=== PATIENT | female | born 1930 | race Caucasian/White ===

== ENCOUNTER 2017-12-28 09:25 | Emergency (ER) | payer MEDICARE, BC ==
--- NOTE | 2017-12-28 09:38 | Emergency Department Record ---
History of Present Illness - General Chief Complaint: Chest Pain Stated Complaint: CHEST PAIN Time Seen by Provider: 12/28/17 09:29 Source: Patient, EMS Mode of Arrival: Stretcher Limitations: No limitations - History of Present Illness Initial Comments: 87 yo female presents by EMS for chest pain. The pain is gone at this time. The pain initially occurred at 6am. The pain was substernal with some radiation to the back. The pain lasted several minutes then would resolve. She had 2-3 simialr episodes prior to calling EMS. The patient denies any recent similar pain. No history of CAD. No history of PE. No abdominal pain. No recent illness. No leg pain or swelling. Her PCP is Dr Gay" in [place]. She took 4 baby aspirin when EMS arrived. MD Complaint: Chest pain -: Hour(s) (6am onset) Pain Location: Substernal Pain Radiation: Back Severity: Moderate Quality: Aching Consistency: Intermittent Improves With: Nothing Worsens With: Movement Other Symptoms: Other Treatments Prior to Arrival: None - Related Data On Oral Contraceptives: No Home Medications Medication Instructions Recorded Confirmed Last Taken Aspirin [Aspir-Low] 81 mg PO DAILY 12/28/17 12/28/17 12/28/17 Insulin Detemir [Levemir Flextouch] 30 units SQ BID 12/28/17 12/28/17 12/28/17 Insulin Lispro [Humalog] 8 unit SQ BID 12/28/17 12/28/17 Unknown Levothyroxine Sodium 75 mcg PO DAILY 12/28/17 12/28/17 Unknown Lisinopril 20 mg PO DAILY 12/28/17 12/28/17 Unknown Metformin HCl 500 mg PO DAILY 12/28/17 12/28/17 Unknown Pravastatin Sodium [Pravachol] 20 mg PO DAILY 12/28/17 12/28/17 Unknown Sitagliptin Phosphate [Januvia] 100 mg PO DAILY 12/28/17 12/28/17 Unknown Allergies Allergy/AdvReac Type Severity Reaction Status Date / Time Penicillins Allergy Severe HIVES Verified 12/28/17 09:37 Review of Systems Constitutional: Denies: Chills, Fever, Malaise, Weakness Eyes: Denies: Eye discharge, Eye pain, Photophobia, Vision change ENT: Denies: Congestion, Epistaxis, Throat pain Respiratory: Denies: Cough, Dyspnea, Hemoptysis, Stridor, Wheezes Cardiovascular: Reports: Chest pain. Denies: Arrhythmia, Dyspnea on exertion, Edema, Palpitations, Syncope Endocrine: Denies: Fatigue, Polydipsia, Polyuria Gastrointestinal: Denies: Abdominal pain, Diarrhea, Nausea, Vomiting Genitourinary: Denies: Dysuria, Urgency Musculoskeletal: Reports: Back pain. Denies: Arthralgia, Myalgia Skin: Denies: Bruising, Change in color, Rash Neurological: Denies: Headache, Numbness, Weakness Psychiatric: Denies: Anxiety Hematological/Lymphatic: Denies: Blood Clots, Easy bleeding, Easy bruising, Swollen glands Physical Exam - General General Appearance: Alert, Oriented x3, Cooperative, No acute distress Limitations: No limitations - Head Head exam: Atraumatic, Normal inspection - Eye Eye exam: Normal appearance, PERRL. negative: Conjunctival injection, Scleral icterus - ENT ENT exam: Normal exam, Mucous membranes moist Ear exam: Normal external inspection Nasal Exam: Normal inspection Mouth exam: Normal external inspection Teeth exam: Normal inspection Throat exam: Normal inspection - Neck Neck exam: Normal inspection, Full ROM. negative: Tenderness - Respiratory Respiratory exam: Normal lung sounds bilaterally. negative: Accessory muscle use, Chest wall tenderness, Decreased breath sounds, Prolonged expiratory, Respiratory distress, Rhonchi, Stridor, Wheezes - Cardiovascular Cardiovascular Exam: Regular rate, Normal rhythm, Normal heart sounds Peripheral Pulses: 2+: Radial (R), Radial (L) - GI/Abdominal GI/Abdominal exam: Soft. negative: Distended, Guarding, Tenderness - Rectal Rectal exam: Deferred - exam: Deferred - Extremities Extremities exam: Normal inspection, Full ROM, Normal capillary refill. negative: Pedal edema, Tenderness - Back Back exam: Reports: Normal inspection, Full ROM. Denies: Muscle spasm, Rash noted, Tenderness - Neurological Neurological exam: Alert, Normal gait, Oriented X3 - Psychiatric Psychiatric exam: Normal affect, Normal mood - Skin Skin exam: Dry, Intact, Normal color, Warm Course - Reevaluation(s) Reevaluation #1: 12/28/17 09:34 EKG NSR rate 87, intervals normal, axis normal, ST Lateral borderline ST depression in leads V% and V6. No old EKG for comparison. EMS EKG reviewed. Rate 112. NS inferior lateral ST changes as well. No ST elevation. 12/28/17 10:13 The labs were reviewed to this point No acute changes in the CBC or CMP The GFR is normal so CTA of the chest was ordered given the chest pain to the back. 12/28/17 10:21 The Troponin is negative 12/28/17 10:35 BP improved to 181/64 12/28/17 11:[address] scan was reviewed No PE, Aneurysm or Dissection. She does have coronary calcifications She had taken 4 baby aspirin today when EMS arrived. 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 12/28/17 11:54 Dr Kim accepts the patient at [facility] for additional work up 12/28/17 11:55 The patient remains pain free still. Medical Decision Making - Lab Data Result diagrams: 12/28/17 09:43 12/28/17 09:43 Disposition Disposition: Transfer Clinical Impression: Chest pain Qualifiers: Chest pain type: unspecified Qualified Code(s): R07.9 - Chest pain, unspecified Disposition: Acute Care Hospital Transfer Transfer To: [facility] Reason For Transfer: Chest Pain Accepting Physician: Julio Time Discussed w/Accepting Physician: 11:49 Condition: (1) Good Forms: Patient Portal Access Time of Disposition: 11:49 Quality - Quality Measures Quality Measures: N/A - Blood Pressure Screening Does Patient Have Any of the Following: No, Active Dx of HTN Blood Pressure Classification: Hypertensive Reading Systolic Measurement: 220 Diastolic Measurement: 98 Screening for High Blood Pressure: Patient Exclusion, Hx of HTN [G9744]
[2017-12-28 09:51] LABS: BASO % 0.4 % (0-6); EOS % 3.2 % (0-6); GRAN % 67.4 % (47-80); HEMATOCRIT 42.8 % (35.0-47.0); HEMOGLOBIN 14.1 gm/dl (11.6-16.0); LYMPH % 17.1 % (16-45); MEAN CELL VOLUME 89.5 fl (81-97); MEAN CORPUSCULAR HEMOGLOBIN 29.5 pg (27-33); MEAN CORPUSCULAR HGB CONC 32.9 g/dl (32-36); MEAN PLATELET VOLUME 11.2 fl (7.4-10.4); MONO % 11.9 % (0-9); PLATELET COUNT 221 K/uL (130-400); RED BLOOD COUNT 4.78 M/uL (3.80-5.40); RED CELL DISTRIBUTION WIDTH 15.3 % (11.5-14.5); WHITE BLOOD COUNT W/O DIFF 7.9 K/uL (4.2-12.2)
[2017-12-28 10:04] LABS: INR 0.96; PARTIAL THROMBOPLASTIN TIME 25.8 SECONDS (24.5-39.1); PROTHROMBIN TIME (PATIENT) 10.4 SECONDS (9.5-12.1)
[2017-12-28 10:05] LABS: BLOOD UREA NITROGEN 16 mg/dL (8-23); CREATININE 0.6 mg/dL (0.5-0.9); EST GLOMERULAR FILTRATION RATE > 60 mL/min
[2017-12-28 10:08] LABS: GLUCOSE,RANDOM 281 mg/dL (74-109)
[2017-12-28 10:10] LABS: ALB/GLOB RATIO 1.4 (1.1-1.8); ALBUMIN 4.1 g/dL (4.0-5.0); ALKALINE PHOSPHATASE 87 U/L (35-104); ALT/SGPT 12 U/L (<33); AST/SGOT 16 U/L (10.0-35.0); CREATINE PHOSPHOKINASE 29 U/L (26-192)
--- NOTE | 2017-12-28 13:01 | CT ANGIOGRAM REPORT ---
EXAM: CTA OF THE CHEST WITH CONTRAST WITH POST PROCESSING HISTORY: ACUTE MID CHEST PAIN POSTERIORLY RADIATING TO THE FRONT ON THE LEFT SINCE THIS MORNING. POSSIBLE PE. TECHNIQUE: CTA of the chest was performed following the intravenous administration of 75 ml of Omnipaque 350 as the IV contrast. Post processing on an independent workstation was performed with multiple 3D MIP series obtained. Comparison: No prior chest CT or chest x-ray with which to compare. FINDINGS: No definite PE identified. No thoracic aortic aneurysm or dissection is seen. No pleural or pericardial effusion evident. Some coronary artery calcification is present. There are some mildly prominent mediastinal nodes with the largest such node in the subcarinal location measuring about 13 mm in maximum short axis. These are nonspecific and may just be reactive. No pleural or pericardial effusion evident. There is a small left adrenal nodule approximately 17.6 mm in size. This has a CT density of only 12 and is likely just an incidental adenoma. Old films would be useful to confirm a stable appearance. No pneumothorax evident. There is a small patch of ground glass infiltrate in the left upper lobe. Mild dependent atelectasis in both lung bases posteriorly. There are a couple air cysts which may be bullae in the right upper lung medially and there are probably some additional tiny scattered bullae in the lungs as well. Clinical correlation as to mild changes of emphysema suggested. Prominent spurring in the thoracic spine at multiple levels. Mild thoracic curve to the right. Prominent degenerative arthritis right shoulder. IMPRESSION: 1. NO DEFINITE PE IDENTIFIED. 2. SMALL PATCH OF GROUND GLASS INFILTRATE LEFT APICAL REGION. 3. SOME BULLAE IN THE LUNGS MAY REPRESENT MILD CHANGES OF EMPHYSEMA. 4. DEGENERATIVE CHANGE IN THE SPINE AND RIGHT SHOULDER. 5. SOME MILDLY PROMINENT MEDIASTINAL NODES ARE NONSPECIFIC ALTHOUGH MAY JUST BE REACTIVE. 6. CORONARY ARTERY CALCIFICATION. 7. 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 OLD SCANS WOULD BE USEFUL TO CONFIRM. JOB NUMBER: [id number] [facility]
== END 2017-12-28 17:52 | disposition short-term general hospital (02) ==
LOC: ER 09:25
DX: R07.9 Chest pain, unspecified (principal); M54.6 Pain in thoracic spine; I10 Essential (primary) hypertension; E11.9 Type 2 diabetes mellitus without complications; Z79.4 Long term (current) use of insulin
CPT/HCPCS: 99285 ×2; 82550; 85025; 85730; 85610; 80053; 84484; 83880; 71275; 93005; 93010; Q9967

== ENCOUNTER 2018-01-26 10:54 | Emergency (ER) | payer MEDICARE, BC ==
[2018-01-26] MEDS ORDERED: HUMULIN R 100 UNIT/ML VIAL SC ONE (10:55)
--- NOTE | 2018-01-26 11:30 | Emergency Department Record ---
History of Present Illness - General Chief complaint: Weakness Stated complaint: WEAKNESS Time Seen by Provider: 01/26/18 10:59 Source: Patient, Family Mode of Arrival: Ambulatory Limitations: No limitations - History of Present Illness Initial comments: 87 yo female presents with weakness since 12 pm yesterday. She was on the toilet and was unable to stand on her own. She remained there until family got her up. She was unable to stand up or walk without two people support. She also noted so could not open her pill bottles today. She was last normal at noon when she went to the bathroom. No speech changes, vision changes, sensory changes. She is unable to lift her leg off the bed and her mate fourth is weak on her dominant right hand. No history of strokes. MD Complaint: Difficulty walking, Focal weakness Onset/Timin -: Days(s) Location: Generalized Severity: Severe Improves with: None Worsens with: None Associated Symptoms: Denies other symptoms - [place] Coma Scale Eye Response: (4) Open spontaneously Motor Response: (6) Obeys commands Verbal Response: (5) Oriented [place] Total: 15 - Symptoms of Stroke Onset of Symptoms Date: 01/25/18 Symptom Onset Unknown: Yes Symptoms of stroke: Muscle Weakness - Related Data Home Medications Medication Instructions Recorded Confirmed Last Taken Carvedilol 6.25 mg PO BID 01/26/18 01/26/18 01/26/18 Allergies Allergy/AdvReac Type Severity Reaction Status Date / Time Penicillins Allergy Severe HIVES Verified 01/26/18 11:03 Travel Screening - Travel/Exposure Within Last 30 Days Have you traveled within the last 30 days?: No Review of Systems Constitutional: Denies: Chills, Fever, Malaise, Weakness Eyes: Denies: Eye discharge ENT: Denies: Congestion, Throat pain Respiratory: Denies: Cough Cardiovascular: Denies: Chest pain, Palpitations, Syncope Endocrine: Denies: Fatigue Gastrointestinal: Denies: Abdominal pain, Diarrhea, Nausea, Vomiting Genitourinary: Denies: Dysuria, Urgency Musculoskeletal: Denies: Arthralgia, Back pain, Joint swelling, Myalgia, Neck pain Skin: Denies: Bruising, Change in color, Rash Neurological: Reports: As per HPI, Abnormal gait, Weakness. Denies: Confusion, Headache, Numbness, Tingling, Tremors, Vertigo Psychiatric: Denies: Anxiety Hematological/Lymphatic: Denies: Blood Clots, Easy bleeding, Easy bruising, Swollen glands Past Medical History - SOCIAL HISTORY Smoking Status: Never smoker Alcohol Use: None Drug Use: None - RESPIRATORY Hx Respiratory Disorders: No - CARDIOVASCULAR Hx Cardio Disorders: Yes Hx Hypertension: Yes Comment:: high cholesterol - NEURO Hx Neuro Disorders: No - GI Hx GI Disorders: No - Hx Genitourinary Disorders: No - ENDOCRINE Hx Endocrine Disorders: Yes Hx Diabetes: Yes Hx Thyroid Disease: Yes - MUSCULOSKELETAL Hx Musculoskeletal Disorders: No - PSYCH Hx Psych Problems: No - HEMATOLOGY/ONCOLOGY Hx Hematology/Oncology Disorders: No Family Medical History Any Significant Family History?: Yes Hx Diabetes: Mother Physical Exam - General General Appearance: Alert, Oriented x3, Cooperative, No acute distress Limitations: No limitations - Head Head exam: Normal inspection - Eye Eye exam: Normal appearance, PERRL, EOMI. negative: Conjunctival injection, Scleral icterus - ENT ENT exam: Normal exam, Mucous membranes moist, Normal orophraynx Ear exam: Normal external inspection Nasal Exam: Normal inspection Mouth exam: Normal external inspection Teeth exam: Normal inspection Throat exam: Normal inspection - Neck Neck exam: Normal inspection, Full ROM. negative: Tenderness - Respiratory Respiratory exam: Normal lung sounds bilaterally. negative: Respiratory distress - Cardiovascular Cardiovascular Exam: Regular rate, Normal rhythm, Normal heart sounds Peripheral Pulses: 2+: Radial (R), Radial (L) - GI/Abdominal GI/Abdominal exam: Soft. negative: Tenderness - Rectal Rectal exam: Deferred - exam: Deferred - Extremities Extremities exam: Normal inspection, Normal capillary refill. negative: Calf tenderness, Full ROM, Joint swelling, Pedal edema, Tenderness - Back Back exam: Reports: Normal inspection, Full ROM. Denies: Muscle spasm, Rash noted, Tenderness - Neurological Neurological exam: Abnormal gait, Alert, CN II-XII intact, Motor sensory deficit , Oriented X3, Reflexes normal, Other (Seo Team Lead on the right is 3-4/5 and 5/5 on the left. She is unable to overcome gravity with the right leg. The leg remains on the bed. she can plantar and dorsiflex the foot with mild decrease vs the left. No PND of the upper extremities. She has no PND on the left lower leg). negative: Altered, Normal gait - Psychiatric Psychiatric exam: Normal affect, Normal mood - Skin Skin exam: Dry, Intact, Normal color, Warm Stroke Assessment - NIH Stroke Scale 1a. Level of Consciousness: (0) Alert 1b. LOC Questions: (0) Answers Correctly 1c. LOC Commands: (0) Performs Tasks Correctly 2. Best Gaze: (0) Normal 3. Visual: (0) No Visual Loss 4. Facial Palsy: (0) Normal Symmetrical Movement 5a. Motor Arm Left: (0) No Drift 5b. Motor Arm Right: (0) No Drift (mate fourth decreased on the right compared to the left) 6a. Motor Leg Left: (0) No Drift 6b. Motor Leg Right: (3) No [place] Effort 7. Limb Ataxia: (0) Absent 8. Sensory: (0) Normal 9. Best Language: (0) No Aphasia 10. Dysarthria: (0) Normal 11. Extinction/Inattention: (0) No Abnormality NIH Stoke Scale Total: 3 Course Vital Signs 01/26/18 10:59 Temperature 98.5 F Pulse Rate 71 Respiratory 18 Rate Blood Pressure 157/70 Pulse Ox 96 - Reevaluation(s) Reevaluation #1: 01/26/18 11:33 DC summary from [facility] was reviewed. Normal Troponins. Stress with small inferior distal apex ischemia with elected medical management. 01/26/18 11:45 EKG 11:37am Rate 70, intervals normal, axis normal, ST normal, LVH. 01/26/18 11:59 The labs were reviewed The glucose in 342 otherwise no changes on the CBC or CMP. 01/26/18 12:16 The HCT was reviewed. chronic age related changes. No intracranial pathology, Left maxillary sinus disease. 01/26/18 12:22 The examination is unchanged with mate fourth weakness, mild biceps weakness and still unable to overcome gravity. One Call at [facility] called for Stroke Team 01/26/18 12:29 I ROSELIA Perkins of Stroke. He accepts the patient for transfer. Medical Decision Making - Lab Data Result diagrams: 01/26/18 11:05 01/26/18 11:05 Disposition Disposition: Transfer Clinical Impression: Stroke Disposition: Acute Care Hospital Transfer Transfer To: [facility] Reason For Transfer: right UE and LE weakness Accepting Physician: Gregorio Time Discussed w/Accepting Physician: 12:24 Condition: (2) Stable Forms: Patient Portal Access Time of Disposition: 12:17 Quality - Quality Measures Quality Measures: N/A - Blood Pressure Screening Does Patient Have Any of the Following: Active Dx of HTN Blood Pressure Classification: Hypertensive Reading Systolic Measurement: 157 Diastolic Measurement: 70 Screening for High Blood Pressure: Patient Exclusion, Hx of HTN [G9744]
[2018-01-26 11:35] LABS: BASO % 0.3 % (0-6); EOS % 0.3 % (0-6); HEMATOCRIT 37.5 % (35.0-47.0); HEMOGLOBIN 12.4 gm/dl (11.6-16.0); LYMPH % 14.9 % (16-45); MEAN CELL VOLUME 89.5 fl (81-97); MEAN CORPUSCULAR HEMOGLOBIN 29.6 pg (27-33); MEAN CORPUSCULAR HGB CONC 33.1 g/dl (32-36); MEAN PLATELET VOLUME 11.7 fl (7.4-10.4); MONO % 12.5 % (0-9); PLATELET COUNT 229 K/uL (130-400); RED BLOOD COUNT 4.19 M/uL (3.80-5.40); RED CELL DISTRIBUTION WIDTH 14.6 % (11.5-14.5)
[2018-01-26 11:43] LABS: BLOOD UREA NITROGEN 17 mg/dL (8-23); CREATININE 0.6 mg/dL (0.5-0.9); EST GLOMERULAR FILTRATION RATE > 60 mL/min
[2018-01-26 11:44] LABS: TOTAL PROTEIN 6.5 g/dL (6.6-8.7)
[2018-01-26 11:46] LABS: GLUCOSE,RANDOM 342 mg/dL (74-109)
[2018-01-26 11:49] LABS: ALB/GLOB RATIO 1.1 (1.1-1.8); ALBUMIN 3.4 g/dL (4.0-5.0); ALKALINE PHOSPHATASE 74 U/L (35-104); ALT/SGPT 8 U/L (<33); AST/SGOT 16 U/L (10.0-35.0)
[2018-01-26 11:50] LABS: PARTIAL THROMBOPLASTIN TIME 32.1 SECONDS (24.5-39.1); PROTHROMBIN TIME (PATIENT) 10.8 SECONDS (9.5-12.1)
[2018-01-26] MEDS ORDERED: HUMULIN R 100 UNIT/ML VIAL SQ ONE (12:17)
[2018-01-26] MEDS ORDERED: ASPIRIN 325 MG TAB ENTERIC-COATED PO ONE (12:28)
[2018-01-26 12:42] LABS: URINE APPEARANCE CLEAR; URINE BILIRUBIN NEGATIVE (NEGATIVE); URINE BLOOD MODERATE (NEGATIVE); URINE COLOR YELLOW; URINE KETONE NEGATIVE (NEGATIVE); URINE LEUKOCYTE ESTERASE NEGATIVE (NEGATIVE); URINE NITRITE NEGATIVE (NEGATIVE); URINE UROBILINOGEN 0.2 E.U./dL (0.20 - 1.00)
[2018-01-26 12:44] LABS: URINE GLUCOSE (UA) >=1000 mg/dL (NEGATIVE)
[2018-01-26 12:52] LABS: URINE BACTERIA 4+
[2018-01-26] MEDS ORDERED: ACETAMINOPHEN 500 MG TABLET PO ONE (14:23)
--- NOTE | 2018-01-27 13:20 | CT SCAN REPORT ---
EXAM: CT OF THE BRAIN WITHOUT CONTRAST HISTORY: RIGHT LEG WEAKNESS. TECHNIQUE: CT of the brain without contrast was obtained. Comparison: None. FINDINGS: The globes are intact. Bubbly air fluid level of the left maxillary sinus with mucosal thickening. No displaced or depressed skull fracture. No intra or extraaxial hemorrhage. CT is limited for the evaluation of acute infarct. No CT evidence for large or territorial acute infarct. Diffuse atrophy. Hypodensities in the periventricular and subcortical white matter consistent with sequelae of small vessel ischemic change. No mass or midline shift. IMPRESSION: LEFT MAXILLARY SINUSITIS. ATROPHY. SMALL VESSEL ISCHEMIC CHANGE. JOB NUMBER: [id number] [facility]
--- NOTE | 2018-01-27 13:23 | RADIOLOGY REPORT ---
EXAM: PELVIS AND RIGHT HIP HISTORY: PAIN. TECHNIQUE: AP view of the pelvis and two views of the right hip were obtained. Comparison: None. Encounter: Initial. FINDINGS: Osteopenia. No convincing evidence for an acute fracture or dislocation. Correlate with any history of inability to ambulate. If warranted further assessment with CT could be performed given the degree of osteopenia. Mild degenerative changes of the hips bilaterally. The soft tissues are unremarkable. IMPRESSION: OSTEOPENIA WITH MILD DEGENERATIVE CHANGE. CORRELATE WITH ANY HISTORY OF INABILITY TO AMBULATE. JOB NUMBER: [id number] [facility]
== END 2018-01-26 14:39 | disposition short-term general hospital (02) ==
LOC: ER 10:54
DX: I63.9 Cerebral infarction, unspecified (principal); G81.91 Hemiplegia, unspecified affecting right dominant side; J32.0 Chronic maxillary sinusitis; R26.2 Difficulty in walking, not elsewhere classified; I10 Essential (primary) hypertension; E11.9 Type 2 diabetes mellitus without complications; Z79.4 Long term (current) use of insulin
CPT/HCPCS: 99285 ×2; 96372; 85025; 85730; 85610; 80053; 81001; 84484; 73502; 70450; 93005; 93010; J1815

== ENCOUNTER 2019-01-01 10:08 | Observation (INO) | payer MEDICARE, BC ==
[2019-01-01] MEDS ORDERED: ASPIRIN 81 MG CHEWABLE TABLET PO ONE (10:35)
[2019-01-01] MEDS ORDERED: NITROGLYCERIN 0.4MG SL TABLET #25 BTL SL ONE (10:35)
[2019-01-01 10:46] LABS: BASO % 0.3 % (0-6); EOS % 3.2 % (0-6); GRAN % 65.3 % (47-80); HEMATOCRIT 39.8 % (35.0-47.0); LYMPH % 17.7 % (16-45); MEAN CELL VOLUME 90.7 fl (81-97); MEAN CORPUSCULAR HEMOGLOBIN 29.6 pg (27-33); MEAN CORPUSCULAR HGB CONC 32.7 g/dl (32-36); MEAN PLATELET VOLUME 11.1 fl (7.4-10.4); MONO % 13.5 % (0-9); PLATELET COUNT 365 K/uL (130-400); RED BLOOD COUNT 4.39 M/uL (3.80-5.40); RED CELL DISTRIBUTION WIDTH 15.2 % (11.5-14.5); WHITE BLOOD COUNT W/O DIFF 7.4 K/uL (4.2-12.2)
--- NOTE | 2019-01-01 10:48 | Emergency Department Record ---
History of Present Illness - General Chief complaint: Extremity Problem Stated complaint: L ARM PAIN Time Seen by Provider: 01/01/19 10:14 Source: Patient Mode of Arrival: Ambulatory Limitations: No limitations - History of Present Illness Initial comments: pt has been getting intermittent cp and l arm pain which has currently resolved. she had no sob, n or sweating. MD Complaint: Extremity pain Onset/Timin -: Days(s) Location: Left, Arm, Shoulder History of Same: Yes Severity scale (1-10): 2 Quality: Aching, Dull Consistency: Constant, Intermittent Improves with: Nothing Worsens with: Nothing Associated Symptoms: Denies other symptoms - Related Data Home Medications Medication Instructions Recorded Confirmed Last Taken Apixaban [Eliquis] 2.5 mg PO BID 01/01/19 01/01/19 1 Day Ago ~12/31/18 Cranberry/B.coagulan/C/Calcium 1 each PO DAILY 01/01/19 01/01/19 1 Day Ago [Cranberry-Probiotic Tablet] ~12/31/18 Ferrous Sulfate [High Potency Iron] 27 mg PO DAILY 01/01/19 01/01/19 1 Day Ago ~12/31/18 Levothyroxine Sodium 88 mcg PO DAILY 01/01/19 01/01/19 1 Day Ago ~12/31/18 Allergies Allergy/AdvReac Type Severity Reaction Status Date / Time Penicillins Allergy Severe HIVES Verified 01/01/19 10:19 Travel Screening - Travel/Exposure Within Last 30 Days Have you traveled within the last 30 days?: No - Travel/Exposure Within Last Year Have you traveled outside the [place] in the last year?: No - Additonal Travel Details Have you been exposed to anyone with a communicable illness?: No - Travel Symptoms Symptom Screening: None Review of Systems Reviewed: No additional complaints except as noted below Constitutional: Reports: As per HPI. Denies: Chills, Fever, Malaise, Night sweats, Weakness, Weight change Eyes: Reports: As per HPI. Denies: Eye discharge, Eye pain, Photophobia, Vision change ENT: Reports: As per HPI. Denies: Congestion, Dental pain, Ear pain, Epistaxis , Hearing loss, Throat pain Respiratory: Reports: As per HPI. Denies: Cough, Dyspnea, Hemoptysis, Stridor, Wheezes Cardiovascular: Reports: As per HPI, Chest pain. Denies: Arrhythmia, Dyspnea on exertion, Edema, Murmurs, Orthopnea, Palpitations, Paroxysmal nocturnal dyspnea, Rheumatic Fever, Syncope Endocrine: Reports: As per HPI. Denies: Fatigue, Heat or cold intolerance, Polydipsia, Polyuria Gastrointestinal: Reports: As per HPI. Denies: Abdominal pain, Constipation, Diarrhea, Hematemesis, Hematochezia, Melena, Nausea, Vomiting Genitourinary: Reports: As per HPI. Denies: Abnormal menses, Discharge, Dyspareunia, Dysuria, Frequency, Hematuria, Incontinence, Retention, Urgency Musculoskeletal: Reports: As per HPI. Denies: Arthralgia, Back pain, Gout, Joint swelling, Myalgia, Neck pain Skin: Reports: As per HPI. Denies: Bruising, Change in color, Change in hair/ nails, Lesions, Pruritus, Rash Neurological: Reports: As per HPI. Denies: Abnormal gait, Confusion, Headache, Numbness, Paresthesias, Seizure, Tingling, Tremors, Vertigo, Weakness Psychiatric: Reports: As per HPI. Denies: Anxiety, Auditory hallucinations, Depression, Homicidal thoughts, Suicidal thoughts, Visual hallucinations Hematological/Lymphatic: Reports: As per HPI. Denies: Anemia, Blood Clots, Easy bleeding, Easy bruising, Swollen glands Past Medical History - SOCIAL HISTORY Smoking Status: Never smoker Alcohol Use: None Drug Use: None - RESPIRATORY Hx Respiratory Disorders: No - CARDIOVASCULAR Hx Cardio Disorders: Yes Hx Hypertension: Yes Hx Irregular Heartbeat: Yes (A-Fib) Comment:: high cholesterol - NEURO Hx Neuro Disorders: No - GI Hx GI Disorders: No - Hx Genitourinary Disorders: No - ENDOCRINE Hx Endocrine Disorders: Yes Hx Diabetes: Yes Hx Thyroid Disease: Yes - MUSCULOSKELETAL Hx Musculoskeletal Disorders: No - PSYCH Hx Psych Problems: No - HEMATOLOGY/ONCOLOGY Hx Hematology/Oncology Disorders: No Family Medical History Any Significant Family History?: Yes Hx Diabetes: Mother Physical Exam - General General Appearance: Alert, Oriented x3, Cooperative, Mild distress - Head Head exam: Normal inspection - Eye Eye exam: Normal appearance, PERRL, EOMI Pupils: Normal accommodation - ENT ENT exam: Normal exam, Mucous membranes moist, Normal external ear exam, Normal orophraynx Ear exam: Normal external inspection. negative: External canal tenderness Nasal Exam: Normal inspection. negative: Discharge, Sinus tenderness Mouth exam: Normal external inspection, Tongue normal Teeth exam: Normal inspection. negative: Dental caries Throat exam: Normal inspection. negative: Tonsillar erythema, Tonsillar exudate - Neck Neck exam: Normal inspection, Full ROM. negative: Tenderness - Respiratory Respiratory exam: Normal lung sounds bilaterally. negative: Respiratory distress - Cardiovascular Cardiovascular Exam: Regular rate, Normal rhythm, Normal heart sounds - GI/Abdominal GI/Abdominal exam: Soft, Normal bowel sounds. negative: Tenderness - Rectal Rectal exam: Deferred - exam: Deferred - Extremities Extremities exam: Normal inspection, Full ROM, Normal capillary refill. negative: Tenderness - Back Back exam: Reports: Normal inspection, Full ROM. Denies: Muscle spasm, Rash noted, Tenderness - Neurological Neurological exam: Alert, CN II-XII intact, Normal gait, Oriented X3 - Psychiatric Psychiatric exam: Normal affect, Normal mood - Skin Skin exam: Dry, Intact, Normal color, Warm Course Vital Signs 01/01/19 10:27 Pulse Rate [ 78 Internet Developer ] Respiratory 18 Rate Blood Pressure 216/87 [Left Arm] Pulse Ox 98 - Reevaluation(s) Reevaluation #1: 01/01/19 14:29 pt remains pain free. bp is better Reevaluation #2: 01/01/19 14:29 ct is neg for pe but has mediastinal lymph nodes as in previous ct. rad is recommending pet scan if conceern Medical Decision Making - Lab Data Result diagrams: 01/01/19 10:35 01/01/19 10:35 Disposition Disposition: Admit Clinical Impression: Mediastinal lymphadenopathy Chest pain Qualifiers: Chest pain type: unspecified Qualified Code(s): R07.9 - Chest pain, unspecified Hypertension Qualifiers: Hypertension type: essential hypertension Qualified Code(s): I10 - Essential ( primary) hypertension Disposition: Still a Patient at [facility] Decision to Admit: Admit from ER Decision to Admit Date: 01/01/19 Decision to Admit Time: 14:32 Condition: (1) Good Forms: Patient Portal Access Quality - Quality Measures Quality Measures: N/A - Blood Pressure Screening Does Patient Have Any of the Following: Active Dx of HTN Blood Pressure Classification: Hypertensive Reading Systolic Measurement: 154 Diastolic Measurement: 64 Screening for High Blood Pressure: Patient Exclusion, Hx of HTN [G9744]
[2019-01-01] MEDS ORDERED: LISINOPRIL 20 MG TABLET PO ONE (11:15)
[2019-01-01 11:25] LABS: BLOOD UREA NITROGEN 14 mg/dL (8-23); CREATININE 0.6 mg/dL (0.5-0.9); EST GLOMERULAR FILTRATION RATE > 60 mL/min
[2019-01-01 11:26] LABS: TOTAL PROTEIN 7.6 g/dL (6.6-8.7)
[2019-01-01 11:28] LABS: GLUCOSE,RANDOM 349 mg/dL (74-109)
[2019-01-01 11:30] LABS: ALB/GLOB RATIO 1.1 (1.1-1.8); ALBUMIN 3.9 g/dL (4.0-5.0); ALKALINE PHOSPHATASE 111 U/L (45-87); ALT/SGPT 6 U/L (<33); AST/SGOT 10 U/L (10.0-35.0); CREATINE PHOSPHOKINASE 26 U/L (26-192)
[2019-01-01 11:33] LABS: CKMB < 1.0 ng/mL (<3.77)
[2019-01-01] MEDS ORDERED: ACETAMINOPHEN 500 MG TABLET PO PRN (15:20)
[2019-01-01] MEDS ORDERED: NOVOLOG FLEXPEN (INSULIN ASPART) 100 UNITS/ML SQ SCH (16:00)
[2019-01-01] MEDS ORDERED: ONDANSETRON HCL IV 4 MG/2 ML VIAL IVP PRN (16:40)
[2019-01-01] MEDS: JANUVIA 100 MG MC SCH (18:24)
[2019-01-01] MEDS: METFORMIN 500 MG TABLET PO SCH ×2 (18:24→22:04)
[2019-01-01] MEDS: APIXABAN 2.5MG TABLET PO SCH ×2 (18:24→22:04)
[2019-01-01] MEDS: CARVEDILOL 3.125 MG TABLET PO SCH ×2 (18:24→22:04)
[2019-01-01 19:36] LABS: CKMB < 1.0 ng/mL (<3.77)
[2019-01-01] MEDS: SIMVASTATIN 10MG TABLET PO SCH ×2 (20:08→22:05)
[2019-01-01] MEDS: LEVEMIR FLEXTOUCH 100 UNIT/ML INSULIN PEN SQ SCH ×2 (20:08→22:04)
--- NOTE | 2019-01-01 20:54 | History & Physical ---
History of Present Illness - Date of Service Date of Service for History & Physical: 01/02/19 - History of Present Illness Admitting Diagnosis: chest pain, hypertension History of Present Illness: Charmaine Hewitt is an 88 y.o. F who was brought to the [facility] ED by her daughter on the morning of 01/01/19 d/t left arm pain with some chest discomfort that went across the chest to the right shoulder. Woke up around 6am and noticed the left arm pain. States that she sat up in her recliner for awhile and then mentioned it to her daughter later in the morning, who thought she should be seen in the ED. Has not had any chest discomfort recently. On arrival to the ED her BP was 216/87. Was given Lisinopril, Nitro x 1 and an ASA 325mg. BP improved. Denies having any actual chest pain, shortness of breath, palpitations, nausea, abdominal pain, lower extremity swelling or numbness and tingling in her left arm. Does state that the left arm pain that travels across chest to right shoulder has been going on for a few weeks. Reports having difficulty moving her left arm to certain positions lately, "like a frozen shoulder". Denies having any difficulty with heartburn over the last several years, states that she used to take Prilosec daily but hasn't for "years". Had a similar episode almost exactly one year ago and was transferred to [facility]. Pt and her son report that she was found to have a UTI while at [facility]. She reports that she has been in and out of [facility] and sub acute rehab over the last year. Came home in April 2018 from Rehab. Had a cardiac workup, which son believes included an ECHO and a chemical stress test. He and pt both don't remember being told that there was anything significant other than that she goes in and out of Afib, which she reports she cannot feel. Was placed on Eliquis for Afib and follows with Dr. Arnold at [facility], whom she is due to see in January 2019. Reports that her BP is usually 130/80s. For PCP needs, pt follows with [facility]. States that the only recent medication change was an increase in her Thyroid medication. Son reports that his sister was helping pt set up her medications but he found out today that his sister hasn't been double checking the medications after pt has set them up for the week. Son believes that she missed some of her medications this week however pt denies this. PMHx: Afib, HTN, high cholesterol, hypothyroidism, DM II, hx of UTIs PCP: [facility] [place]: Dr. Arnold @ [facility] ED Course: VS: BP 216/87, HR 78, RR 18, SPO2 98% on RA Chest CT: Preliminary report is negative for PE, mediastinal lymph node enlargement similar to previous CT (from 12/28/17) and recommendation for PET scan EKG: No acute changes from previous EKG from 12/28/17. NSR, QTc 425. D-dimer 1.38, CK-MB <1, Troponins <0.010, pro-BNP 310 01/01/19 1900: Resting in bed with son and [id number] at bedside. Denies having any pain at this time. States that she can't lift her left arm up well but "that has been going on for a few weeks". Reports that she does not want to go to [facility], if that ends up being recommended. States "I would rather be at home but if I have to be in a hospital, I want to be here." Discussed testing done in ED. Pt and family state that they are unaware of mediastinal lymphadenopathy that was seen on CT a year ago, as well as on today's CT. Pt reports that she hasn't been eating much lately but does force herself to drink a Glucerna. Doesn 't have much appetite anymore. Denies weakness, confusion, difficulty breathing , fever, chills or abdominal pain. Reports that bowels are working and she usually has loose stool. No urinary complaints. Travel Screening - Travel/Exposure Within Last 30 Days Have you traveled within the last 30 days?: No - Travel/Exposure Within Last Year Have you traveled outside the [place] in the last year?: No - Additonal Travel Details Have you been exposed to anyone with a communicable illness?: No - Travel Symptoms Symptom Screening: None Review of Systems Constitutional: Reports: As per HPI. Denies: Chills, Fever, Malaise, Night sweats, Weakness, Weight change Eyes: Reports: As per HPI. Denies: Eye discharge, Eye pain, Photophobia, Vision change ENT: Reports: As per HPI. Denies: Congestion, Dental pain, Ear pain, Epistaxis , Hearing loss, Throat pain Respiratory: Reports: As per HPI. Denies: Cough, Dyspnea, Hemoptysis, Stridor, Wheezes Cardiovascular: Reports: As per HPI. Denies: Arrhythmia, Chest pain, Dyspnea on exertion, Edema, Murmurs, Orthopnea, Palpitations, Paroxysmal nocturnal dyspnea, Rheumatic Fever, Syncope Endocrine: Reports: As per HPI. Denies: Fatigue, Heat or cold intolerance, Polydipsia, Polyuria Gastrointestinal: Reports: As per HPI. Denies: Abdominal pain, Constipation, Diarrhea, Hematemesis, Hematochezia, Melena, Nausea, Vomiting Genitourinary: Reports: As per HPI. Denies: Abnormal menses, Discharge, Dyspareunia, Dysuria, Frequency, Hematuria, Incontinence, Retention, Urgency Musculoskeletal: Reports: As per HPI, Arthralgia (left shoulder and upper arm pain, occasional right shoulder pain). Denies: Back pain, Gout, Joint swelling , Myalgia, Neck pain Skin: Reports: As per HPI. Denies: Bruising, Change in color, Change in hair/ nails, Lesions, Pruritus, Rash Neurological: Reports: As per HPI. Denies: Abnormal gait, Confusion, Headache, Numbness, Paresthesias, Seizure, Tingling, Tremors, Vertigo, Weakness Psychiatric: Reports: As per HPI. Denies: Anxiety, Auditory hallucinations, Depression, Homicidal thoughts, Suicidal thoughts, Visual hallucinations Hematological/Lymphatic: Reports: As per HPI. Denies: Anemia, Blood Clots, Easy bleeding, Easy bruising, Swollen glands Past Medical History - SOCIAL HISTORY Smoking Status: Never smoker Alcohol Use: None Drug Use: None - RESPIRATORY Hx Respiratory Disorders: No - CARDIOVASCULAR Hx Cardio Disorders: Yes Hx Hypertension: Yes Hx Irregular Heartbeat: Yes (A-Fib) Comment:: high cholesterol - NEURO Hx Neuro Disorders: No - GI Hx GI Disorders: No - Hx Genitourinary Disorders: No - ENDOCRINE Hx Endocrine Disorders: Yes Hx Diabetes: Yes Hx Thyroid Disease: Yes - MUSCULOSKELETAL Hx Musculoskeletal Disorders: No - PSYCH Hx Psych Problems: No - HEMATOLOGY/ONCOLOGY Hx Hematology/Oncology Disorders: No Family Medical History Any Significant Family History?: Yes Hx Diabetes: Mother H&P Meds/Allergies - Allergies Allergies: Allergies Allergy/AdvReac Type Severity Reaction Status Date / Time Penicillins Allergy Severe HIVES Verified 01/01/19 10:19 - Home Medications Home Medications Medication Instructions Recorded Confirmed Last Taken Apixaban [Eliquis] 2.5 mg PO BID 01/01/19 01/01/19 1 Day Ago ~12/31/18 Cranberry/B.coagulan/C/Calcium 1 each PO DAILY 01/01/19 01/01/19 1 Day Ago [Cranberry-Probiotic Tablet] ~12/31/18 Ferrous Sulfate [High Potency Iron] 27 mg PO DAILY 01/01/19 01/01/19 1 Day Ago ~12/31/18 Levothyroxine Sodium 88 mcg PO DAILY 01/01/19 01/01/19 1 Day Ago ~12/31/18 - Active Medications Active Medications: Current Medications Acetaminophen (Tylenol 500mg Tab) 1,000 mg PO Q6H PRN PRN Reason: PAIN - MILD(1-4)/FEVER Apixaban (Eliquis) 2.5 mg PO BID [facility] Last Admin: 01/01/19 18:24 Dose: 2.5 mg Aspirin (Ecotrin (Ec)) 81 mg PO DAILY [facility] Carvedilol (Coreg) 6.25 mg PO BID [facility] Last Admin: 01/01/19 18:24 Dose: 6.25 mg Ferrous Sulfate (Iron) 325 mg PO DAILY [facility] Insulin Aspart (Novolog Flexpen) 1 unit SQ ASDIR [facility] Insulin Detemir (Levemir Flextouch) 18 unit SQ BID [facility] Last Admin: 01/01/19 20:08 Dose: 18 unit Levothyroxine Sodium (Synthroid) 88 mcg PO DAILY [facility] Lisinopril (Zestril) 20 mg PO DAILY [facility] Metformin HCl (Glucophage Ir) 500 mg PO BID [facility] Last Admin: 01/01/19 18:24 Dose: 500 mg Ondansetron HCl (Zofran) 4 mg IVP Q6H PRN PRN Reason: NAUSEA Patient Own Med: Januvia 100mg ( Sitagliptin) 1 each MC DAILY [facility] Last Admin: 01/01/19 18:24 Dose: 1 each Simvastatin (Zocor) 10 mg PO QHS [facility] Last Admin: 01/01/19 20:08 Dose: 10 mg Physical Exam - Vital Signs Vital Signs: Vital Signs - Last 24 Hrs Temp Pulse Pulse Resp BP Pulse Ox 01/01/19 20:09 97.7 F 70 18 164/64 96 01/01/19 17:23 74 70 16 01/01/19 17:15 97.9 F 70 16 142/62 96 01/01/19 15:05 97.7 F 18 160/65 97 01/01/19 13:13 74 17 154/64 97 01/01/19 12:15 68 18 140/94 98 01/01/19 11:31 71 18 200/67 98 01/01/19 11:13 72 18 196/95 01/01/19 10:53 75 18 223/87 98 01/01/19 10:27 78 18 216/87 98 - General General Appearance: Alert, Oriented x3, Cooperative, No acute distress Limitations: No limitations - Head Head exam: Normal inspection - Eye Eye exam: Normal appearance, PERRL, EOMI. negative: Nystagmus Pupils: Normal accommodation - ENT ENT exam: Normal exam, Mucous membranes moist, Normal external ear exam Ear exam: Normal external inspection. negative: External canal tenderness Nasal Exam: Normal inspection. negative: Discharge, Sinus tenderness Mouth exam: Normal external inspection, Tongue normal Teeth exam: Normal inspection. negative: Dental caries Throat exam: Normal inspection. negative: Tonsillar erythema, Tonsillar exudate - Neck Neck exam: Normal inspection, Full ROM. negative: Tenderness - Respiratory Respiratory exam: Normal lung sounds bilaterally. negative: Accessory muscle use, Chest wall tenderness, Respiratory distress - Cardiovascular Cardiovascular Exam: Regular rate, Normal rhythm, Normal heart sounds Peripheral Pulses: 3+: Radial (R), Radial (L), Dorsalis Pedis (R), Dorsalis Pedis (L) - GI/Abdominal GI/Abdominal exam: Soft, Normal bowel sounds. negative: Tenderness - Rectal Rectal exam: Deferred - exam: Deferred - Extremities Extremities exam: Normal inspection, Normal capillary refill. negative: Full ROM (Decreased ROM to left shoulder joint), Pedal edema, Tenderness - Back Back exam: Reports: Normal inspection, Full ROM. Denies: Muscle spasm, Rash noted, Tenderness - Neurological Neurological exam: Alert, CN II-XII intact, Normal gait, Oriented X3. negative : Altered - Psychiatric Psychiatric exam: Normal affect, Normal mood - Skin Skin exam: Dry, Intact, Normal color, Warm. negative: Cyanosis, Diaphoretic, Erythema, Mottled, Pallor, Petechiae, Rash Results - Labs Result Diagrams: 01/01/19 10:35 01/01/19 10:35 Labs Last 24 Hours: Laboratory Results - last 24 hr 01/01/19 01/01/19 01/01/19 10:35 10:35 10:35 WBC 7.4 RBC 4.39 Hgb 13.0 Hct 39.8 MCV 90.7 MCH 29.6 MCHC 32.7 RDW 15.2 H Plt Count 365 MPV 11.1 H Gran % 65.3 Lymphocytes % 17.7 Monocytes % 13.5 H Eosinophils % 3.2 Basophils % 0.3 D-Dimer 1.38 H Sodium 136 Potassium 4.3 Chloride 96 L Carbon Dioxide 23.0 Anion Gap 17.0 H BUN 14 Creatinine 0.6 Estimated GFR > 60 POC Glucose Random Glucose 349 H Calcium 10.9 H Total Bilirubin 0.50 AST 10 ALT 6 Alkaline Phosphatase 111 H Creatine Kinase 26 CK-MB (CK-2) < 1.0 Troponin T < 0.010 NT-Pro-B Natriuret Pep 310.80 Total Protein 7.6 Albumin 3.9 L Globulin 3.7 Albumin/Globulin Ratio 1.1 01/01/19 01/01/19 01/01/19 17:00 19:00 19:15 WBC RBC Hgb Hct MCV MCH MCHC RDW Plt Count MPV Gran % Lymphocytes % Monocytes % Eosinophils % Basophils % D-Dimer Sodium Potassium Chloride Carbon Dioxide Anion Gap BUN Creatinine Estimated GFR POC Glucose 287 H Random Glucose Calcium Total Bilirubin AST ALT Alkaline Phosphatase Creatine Kinase CK-MB (CK-2) Cancelled < 1.0 Troponin T < 0.010 NT-Pro-B Natriuret Pep Total Protein Albumin Globulin Albumin/Globulin Ratio VTE H&P Assessment - Risk for VTE Risk for VTE: Yes Risk Level: High Risk Assessment Date: 01/01/19 Risk Assessment Time: 19:00 VTE Orders Placed or Will Be Placed: Yes Plan - Detailed Diagnosis and Plan (1) Chest pain Current Visit: Yes Status: Acute Qualifiers: Chest pain type: unspecified Qualified Code(s): R07.9 - Chest pain, unspecified Base Code: R07.9 - CHEST PAIN, UNSPECIFIED Comment: 01/01/19: -EKG NSR, unchanged from previous EKG -Trops < 0.010 x3, CK-MB < 1 x3 -Nitro x 1 in ED, no further Nitro administered -Hx of Cardiac Workup in January 2018, no testing results available. Pt and family do not recall anything real abnormal -D-dimer elevated, pt is anticoagulated on Eliquis for Afib. 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, dystrophic calcificiation in rotator cuff -Tylenol PRN ordered (3) Hypertension Current Visit: Yes Status: Acute Qualifiers: Hypertension type: essential hypertension Qualified Code(s): I10 - Essential (primary) hypertension Base Code: I10 - ESSENTIAL (PRIMARY) HYPERTENSION Comment: 01/01/19: -BP averaging in 160/60s, pt reports is usually 130s/80s -Continue home dose of Carvedilol 6.25mg PO BID -Continue home dose of Lisinopril 20mg daily -Creat 0.60, GFR >60 -Will add Norvasc 2.5mg daily at this time -Recommend f/u with PCP for further BP management (4) Mediastinal lymphadenopathy Current Visit: Yes Status: Acute Base Code: R59.0 - LOCALIZED ENLARGED LYMPH NODES Comment: 01/01/19: -CT of chest from 12/2017: mildly prominent mediastinal nodes, largest @ subcarina at 13mm, ground glass infiltrate in Left upper lobe -Preliminary read from current Chest CT still shows mediastinal lymph node prominence and recommends PET scan for further workup. 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 (6) Urinary tract infection Current Visit: Yes Status: Acute Base Code: N39.0 - URINARY TRACT INFECTION , SITE NOT SPECIFIED Comment: 01/02/19: -Hx of recurrent UTI -U/A = +Nitrites, + Leuks and +blood, C&S pending -Macrobid 100mg PO BID x 14 days (7) DVT prophylaxis Current Visit: Yes Status: Acute Base Code: [id number] - Comment: 01/01/19: -High Risk d/t age, Afib dx -D-dimer elevated at 1.38, chest CTA negative for PE -Continue home dose of Eliquis 2.5mg PO BID -Nursing to encourage ambulation (8) Full code status Current Visit: Yes Status: Acute Base Code: Z78.9 - OTHER SPECIFIED HEALTH STATUS Comment: 01/01/19: -Full code this admission
[2019-01-02 03:18] LABS: CKMB < 1.0 ng/mL (<3.77)
[2019-01-02 09:57] LABS: URINE APPEARANCE CLEAR; URINE BILIRUBIN NEGATIVE (NEGATIVE); URINE BLOOD SMALL (NEGATIVE); URINE COLOR YELLOW; URINE GLUCOSE (UA) NEGATIVE (NEGATIVE); URINE KETONE NEGATIVE (NEGATIVE); URINE LEUKOCYTE ESTERASE LARGE (NEGATIVE); URINE NITRITE POSITIVE (NEGATIVE); URINE PROTEIN NEGATIVE (NEGATIVE); URINE UROBILINOGEN 0.2 E.U./dL (0.20 - 1.00)
[2019-01-02] MEDS ORDERED: LEVOTHYROXINE SODIUM 88 MCG TABLET PO SCH (10:00)
[2019-01-02] MEDS ORDERED: ASPIRIN 81 MG TABEC PO SCH (10:00)
[2019-01-02] MEDS ORDERED: FERROUS SULFATE 325 MG TAB PO SCH (10:00)
[2019-01-02] MEDS ORDERED: LISINOPRIL 20 MG TABLET PO SCH (10:00)
[2019-01-02 10:14] LABS: URINE BACTERIA 4+; URINE WBC >50 (0-2/hpf)
[2019-01-02] MEDS ORDERED: NITROFURANTOIN MONO 100 MG CAPSULE PO SCH (10:30)
[2019-01-02] MEDS: CARVEDILOL 3.125 MG TABLET PO SCH (10:35)
[2019-01-02] MEDS: APIXABAN 2.5MG TABLET PO SCH (10:36)
[2019-01-02] MEDS: METFORMIN 500 MG TABLET PO SCH (10:36)
[2019-01-02] MEDS: LEVEMIR FLEXTOUCH 100 UNIT/ML INSULIN PEN SQ SCH (10:37)
[2019-01-02] MEDS: JANUVIA 100 MG MC SCH (10:38)
[2019-01-02] MEDS ORDERED: NOVOLOG FLEXPEN (INSULIN ASPART) 100 UNITS/ML SQ SCH (11:04)
[2019-01-02] MEDS ORDERED: AMLODIPINE BESYLATE 5MG TAB PO SCH (11:30)
--- NOTE | 2019-01-02 13:00 | Discharge Summary ---
Providers Discharge Summary Date: 01/02/19 Date of admission: 01/01/19 14:57 Attending physician: NAOMI COSTA Primary care physician: NICOLAS LAMAR Physical Exam - Vital Signs Vital Signs: Vital Signs - Last 24 Hrs Temp Pulse Pulse Pulse Resp BP Pulse Ox 01/02/19 10:15 98.3 F 78 18 186/72 97 01/02/19 09:00 67 74 18 01/02/19 05:00 97.7 F 67 18 159/63 95 01/02/19 01:00 97.8 F 74 20 163/65 95 01/01/19 20:09 97.7 F 70 18 164/64 96 01/01/19 17:23 74 70 16 01/01/19 17:15 97.9 F 70 16 142/62 96 01/01/19 15:05 97.7 F 18 160/65 97 01/01/19 13:13 74 17 154/64 97 - General General Appearance: Alert, Oriented x3, Cooperative, No acute distress Limitations: No limitations - Head Head exam: Normal inspection - Eye Eye exam: Normal appearance, PERRL, EOMI. negative: Nystagmus Pupils: Normal accommodation - ENT ENT exam: Normal exam, Mucous membranes moist, Normal external ear exam Ear exam: Normal external inspection. negative: External canal tenderness Nasal Exam: Normal inspection. negative: Discharge, Sinus tenderness Mouth exam: Normal external inspection, Tongue normal Teeth exam: Normal inspection. negative: Dental caries Throat exam: Normal inspection. negative: Tonsillar erythema, Tonsillar exudate - Neck Neck exam: Normal inspection, Full ROM. negative: Tenderness - Respiratory Respiratory exam: Normal lung sounds bilaterally. negative: Accessory muscle use, Chest wall tenderness, Respiratory distress - Cardiovascular Cardiovascular Exam: Regular rate, Normal rhythm, Normal heart sounds Peripheral Pulses: 3+: Radial (R), Radial (L), Dorsalis Pedis (R), Dorsalis Pedis (L) - GI/Abdominal GI/Abdominal exam: Soft, Normal bowel sounds. negative: Tenderness - Rectal Rectal exam: Deferred - exam: Deferred - Extremities Extremities exam: Normal inspection, Normal capillary refill. negative: Full ROM (Decreased ROM to left shoulder joint), Pedal edema, Tenderness - Back Back exam: Reports: Normal inspection, Full ROM. Denies: Muscle spasm, Rash noted, Tenderness - Neurological Neurological exam: Alert, CN II-XII intact, Normal gait, Oriented X3. negative : Altered - Psychiatric Psychiatric exam: Normal affect, Normal mood - Skin Skin exam: Dry, Intact, Normal color, Warm. negative: Cyanosis, Diaphoretic, Erythema, Mottled, Pallor, Petechiae, Rash Hospitalization - Hospitalization Admission Diagnosis: chest pain, hypertension - Problem List/Discharge Diagnosis (1) Chest pain Status: Acute Discharge Diagnosis: Chest pain type: unspecified Qualified Code(s): R07.9 - Chest pain, unspecified Base Code: R07.9 - CHEST PAIN, UNSPECIFIED Comment: 01/02/19: -No c/o chest pain since ED arrival -EKG NSR, unchanged from previous EKG -Trops < 0.010 x4 CK-MB < 1 x4 -Nitro x 1 in ED, no further Nitro administered -Hx of Cardiac Workup in January 2018, no testing results available. Pt and family do not recall anything real abnormal -D-dimer elevated, pt is anticoagulated on Eliquis for Afib. 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, dystrophic calcificiation in rotator cuff -Tylenol PRN ordered (3) Hypertension Status: Acute Discharge Diagnosis: Hypertension type: essential hypertension Qualified Code(s): I10 - Essential (primary) hypertension Base Code: I10 - ESSENTIAL (PRIMARY) HYPERTENSION Comment: 01/02/19: -BP 139/56 after Lisinopril, Coreg and Norvasc administration -Continue home dose of Carvedilol 6.25mg PO BID -Continue home dose of Lisinopril 20mg daily -Continue Norvasc 2.5mg PO daily -Recommend f/u with PCP for BP management (4) Mediastinal lymphadenopathy Status: Acute Base Code: R59.0 - LOCALIZED ENLARGED LYMPH NODES Comment: 09/10: -CT of chest from 12/2017: mildly prominent mediastinal nodes, largest @ subcarina at 13mm, ground glass infiltrate in Left upper lobe -Preliminary read from current Chest CT still shows mediastinal lymph node prominence and recommends PET scan for further workup. -Discussed findings with pt and son, recommend f/u with PCP about this finding (5) Diabetes mellitus, type II Status: Acute Discharge Diagnosis: Diabetes mellitus longterm insulin use: with longterm use Base Code: E11.9 - TYPE 2 DIABETES MELLITUS WITHOUT COMPLICATIONS Comment: 09/10: -Blood glucose on arrival to ED= 349 -Blood glucose this a.m.= 217 -Increase Levemir to 20 units BID -Will continue home Novolog scale with meals of 2 units for every 20 over blood glucose of 200 -Continue home dose of Metformin 500mg PO BID -Recommend monitoring Blood Glucose levels before meals and at bedtime and logging and then bringing log to PCP at f/u. (6) Urinary tract infection Status: Acute Base Code: N39.0 - URINARY TRACT INFECTION, SITE NOT SPECIFIED Comment: 01/02/19: -Hx of recurrent UTI -U/A = +Nitrites, + Leuks and +blood, C&S pending -Macrobid 100mg PO BID x 14 days -F/u with PCP in 1-2 weeks (7) DVT prophylaxis Status: Acute Base Code: [id number] - Comment: 01/01/19: -High Risk d/t age, Afib dx -D-dimer elevated at 1.38, chest CTA negative for PE -Continue home dose of Eliquis 2.5mg PO BID -Nursing to encourage ambulation (8) Full code status Status: Acute Base Code: Z78.9 - OTHER SPECIFIED HEALTH STATUS Comment: : -Full code this admission - Hospitalization Course Disposition: Home, Self-Care Hospital Course: Charmaine Hewitt is an 88 y.o. F who was brought to the [facility] ED by her daughter on the morning of 01/01/19 d/t left arm pain with some chest discomfort that went across the chest to the right shoulder. Woke up around 6am and noticed the left arm pain. States that she sat up in her recliner for awhile and then mentioned it to her daughter later in the morning, who thought she should be seen in the ED. Has not had any chest discomfort recently. On arrival to the ED her BP was 216/87. Was given Lisinopril, Nitro x 1 and an ASA 325mg. BP improved. Denies having any actual chest pain, shortness of breath, palpitations, nausea, abdominal pain, lower extremity swelling or numbness and tingling in her left arm. Does state that the left arm pain that travels across chest to right shoulder has been going on for a few weeks. Reports having difficulty moving her left arm to certain positions lately, "like a frozen shoulder". Denies having any difficulty with heartburn over the last several years, states that she used to take Prilosec daily but hasn't for "years". Had a similar episode almost exactly one year ago and was transferred to [facility]. Pt and her son report that she was found to have a UTI while at [facility]. She reports that she has been in and out of [facility] and sub acute rehab over the last year. Came home in April 2018 from Rehab. Had a cardiac workup, which son believes included an ECHO and a chemical stress test. He and pt both don't remember being told that there was anything significant other than that she goes in and out of Afib, which she reports she cannot feel. Was placed on Eliquis for Afib and follows with Dr. Arnold at [facility], whom she is due to see in January 2019. Reports that her BP is usually 130/80s. For PCP needs, pt follows with [facility]. States that the only recent medication change was an increase in her Thyroid medication. Son reports that his sister was helping pt set up her medications but he found out today that his sister hasn't been double checking the medications after pt has set them up for the week. Son believes that she missed some of her medications this week however pt denies this. PMHx: Afib, HTN, high cholesterol, hypothyroidism, DM II, hx of UTIs PCP: [facility] Construction Inspector: Dr. Arnold @ [facility] ED Course: VS: BP 216/87, HR 78, RR 18, SPO2 98% on RA Chest CT: Preliminary report is negative for PE, mediastinal lymph node enlargement similar to previous CT (from 12/28/17) and recommendation for PET scan EKG: No acute changes from previous EKG from 12/28/17. NSR, QTc 425. D-dimer 1.38, CK-MB <1, Troponins <0.010, pro-BNP 310 01/01/19 1900: Resting in bed with son and [id number] at bedside. Denies having any pain at this time. States that she can't lift her left arm up well but "that has been going on for a few weeks". Reports that she does not want to go to [facility], if that ends up being recommended. States "I would rather be at home but if I have to be in a hospital, I want to be here." Discussed testing done in ED. Pt and family state that they are unaware of mediastinal lymphadenopathy that was seen on CT a year ago, as well as on today's CT. Pt reports that she hasn't been eating much lately but does force herself to drink a Glucerna. Doesn 't have much appetite anymore. Denies weakness, confusion, difficulty breathing , fever, chills or abdominal pain. Reports that bowels are working and she usually has loose stool. No urinary complaints. 01/02/19 1300: Nursing reports that pt denies having any chest pain, SOB or left arm pain. BP decreased after medication administration. U/A collected and pt found to have + leuks, +nitrites and blood. C&S pending. Pt denies urinary symptoms. Procedures: Imaging and X-Rays 01/01/19 11:55 CHEST CTA w contrast [CTA] Stat 01/01/19 19:18 SHOULDER, LEFT [RAD] Stat Cardiology Procedures 01/01/19 10:35 Technical Data Analyst NOW EKG NOW 01/01/19 15:20 Technical Data Analyst .Continuous EKG QDX2@0600 Abnormal Labs: Abnormal Lab Results 01/01/19 01/01/19 01/01/19 Range/Units 10:35 10:35 10:35 RDW 15.2 H (11.5-14.5) % MPV 11.1 H (7.4-10.4) fl Monocytes % 13.5 H (0-9) % D-Dimer 1.38 H (0-0.59) mg/L FEU Chloride 96 L (98-107) mmol/L Anion Gap 17.0 H (7-16) POC Glucose (70-110) mg/dL Random Glucose 349 H (74-109) mg/dL Calcium 10.9 H (8.8-10.2) mg/dL Alkaline Phosphatase 111 H (45-87) U/L Albumin 3.9 L (4.0-5.0) g/dL Urine Blood (NEGATIVE) Urine Nitrite (NEGATIVE) Ur Leukocyte Esterase (NEGATIVE) 01/01/19 01/01/19 01/02/19 Range/Units 17:00 20:07 Unknown RDW (11.5-14.5) % MPV (7.4-10.4) fl Monocytes % (0-9) % D-Dimer (0-0.59) mg/L FEU Chloride (98-107) mmol/L Anion Gap (7-16) POC Glucose 287 H 270 H (70-110) mg/dL Random Glucose (74-109) mg/dL Calcium (8.8-10.2) mg/dL Alkaline Phosphatase (45-87) U/L Albumin (4.0-5.0) g/dL Urine Blood Small H (NEGATIVE) Urine Nitrite Positive H (NEGATIVE) Ur Leukocyte Esterase Large H (NEGATIVE) Condition at Discharge: (1) Good Discharge Medications - Discharge Medications Prescriptions: Amlodipine Besylate [Norvasc] 2.5 mg PO DAILY #14 tab Nitrofurantoin [place] [Macrobid] 100 mg PO BID #13 capsule Home Medications: Ambulatory Orders Aspirin [Aspir-Low] 81 mg PO DAILY 12/28/17 [Last Taken 1 Day Ago ~12/31/18] Lisinopril 20 mg PO DAILY 12/28/17 [Last Taken 1 Day Ago ~12/31/18] Metformin HCl 500 mg PO BID 12/28/17 [Last Taken 1 Day Ago ~12/31/18] Pravastatin Sodium [Pravachol] 20 mg PO QHS 12/28/17 [Last Taken 1 Day Ago ~07/11] Sitagliptin Phosphate [Januvia] 100 mg PO DAILY 12/28/17 [Last Taken 1 Day Ago ~ 12/31/18] Carvedilol 6.25 mg PO BID 01/26/18 [Last Taken 1 Day Ago ~12/31/18] Apixaban [Eliquis] 2.5 mg PO BID 01/01/19 [Last Taken 1 Day Ago ~12/31/18] Cranberry/B.coagulan/C/Calcium [Cranberry-Probiotic Tablet] 1 each PO DAILY 08/11 [Last Taken 1 Day Ago ~12/31/18] Ferrous Sulfate [High Potency Iron] 27 mg PO DAILY 01/01/19 [Last Taken 1 Day Ago ~12/31/18] Levothyroxine Sodium 88 mcg PO DAILY 01/01/19 [Last Taken 1 Day Ago ~12/31/18] Acetaminophen [Tylenol 500Mg Tab] 1,000 mg PO Q6H PRN tablet 01/02/19 [Last Taken Unknown] Amlodipine Besylate [Norvasc] 2.5 mg PO DAILY #14 tab 01/02/19 [Last Taken Unknown] Insulin Aspart [Novolog Flexpen] 2 unit SQ TIDAC ml 01/02/19 [Last Taken Unknown] Insulin Detemir [Levemir Flextouch] 20 unit SQ BID syringe 01/02/19 [Last Taken Unknown] Nitrofurantoin [place] [Macrobid] 100 mg PO BID #13 capsule 01/02/19 [Last Taken Unknown] Discharge Plan - Discharge Instructions Activity at Discharge: Increase Activity as Tolerated Diet at Discharge: Advance to Usual Diet Instructions: Hypertension (DC), Urinary Traction Infection in Older Adults (DC ) Additional Instructions: Call [facility] cardiology at [phone] to set up an appointment for a hospital follow up. Call your Primary Care Provider to set up an appointment in the next 1-2 weeks for follow up regarding your blood pressure, elevated glucose levels, UTI and mediastinal lymph node enlargement. Start taking Macrobid 100mg capsule, take 1 capsule when you get home tonight and then start twice a day tomorrow until gone. Increase Levemir from 18 units to 20 units twice a day Continue blood glucose checks and Novolog insulin as prescribed by your Primary Care Physician Start taking Norvasc 2.5mg daily, your Primary Care Provider may stop this medication at your appointment. Quality Measures - Quality Measures Quality Measures: Advance Directives, Documentation of Current Medications in Medical Record, Elder Maltreatment Screen and Follow-Up Plan, Screening for High Blood Pressure and F/U Documented - Current Medications Quality Measure: Measure #130: Documentation of Current Medications Documentation of Current Medications: <Current Medications Documented/Reviewed> [G8427] - Blood Pressure Screening Quality Measure: Screening for High Blood Pressure and Follow-Up Documented Does Patient Have Any of the Following: Active Dx of HTN Blood Pressure Classification: Hypertensive Reading Systolic Measurement: 139 Diastolic Measurement: 56 Screening for High Blood Pressure: Patient Exclusion, Hx of HTN [G9744] - Advance Directives Quality Measure: Measure #47: Care Plan Advance Directives Established: No Advance Directives Information Provided To Patient: No Advance Directives on File: No Living Will: Yes Power of Fountain Helper: Yes Power of Fountain Helper Name: Jason Hewitt Advance Care Planning: <Care Plan/Decision Maker Documented; Discussed & Documented> [[id number]] - Elder Abuse Suspicion Index Screening: Elder Abuse Suspicion Index Screening Rely on people for bathing, dressing, shopping, banking, etc: No Prevented from getting food, clothes, medication, etc: No Made to feel shamed or threatened by someone: No Forced to sign papers or use money against will: No Feel afraid, touched in ways not wanted or hurt physically: No Poor eye contact, withdrawn, malnourished, cuts or bruises: No Screening Result: Negative result EASI Reference Information: Deric ECHEVARRIA, Kate C, Cyndee D, Thuan Ferrer.Development and validation of a tool to assist physicians identification of elder abuse: The Elder Abuse Suspicion Index (EASI ). Journal of Elder Abuse and Neglect, 2008; 20 (3): 276-300. - Elder Maltreatment Screen Quality Measures: Elder Maltreatment Screen and Follow-Up Plan Elder Maltreatment Screen: <Negative, No Follow-Up Plan Required> [G2164]
[2019-01-02] MEDS ORDERED: LEVEMIR FLEXTOUCH 100 UNIT/ML INSULIN PEN SQ SCH (22:00)
--- NOTE | 2019-01-03 07:58 | RADIOLOGY REPORT ---
EXAM: LEFT SHOULDER HISTORY: PAIN WITHOUT INJURY. TECHNIQUE: Three views of the left shoulder were obtained. FINDINGS: There are degenerative changes in the glenohumeral and acromioclavicular joint. Additionally, there are calcifications present in the soft tissues around the rotator cuff. Modest osteophytes are present. No erosive or destructive change is seen. There are no fractures. IMPRESSION: DJD OF THE LEFT SHOULDER. POSSIBLE ROTATOR CUFF ABNORMALITY, CONSIDER MRI IF SYMPTOMS PERSIST. JOB NUMBER: [id number] [facility]
--- NOTE | 2019-01-03 08:21 | CT ANGIOGRAM REPORT ---
EXAM: CT ANGIOGRAM OF THE CHEST HISTORY: PATIENT HAS CHEST PAIN. TECHNIQUE: Serial axial CT scan of the chest was performed at 1.25 mm intervals from the thoracic inlet to the dome of the diaphragm following the intravenous administration of contrast. Comparison: CT angiogram of the chest dated 12/28/17 is provided. FINDINGS: The thoracic inlet is unremarkable. The lung windows demonstrate a focus of ground glass appearance within the left upper lobe which is unchanged with respect to the prior CT scan. This finding likely represents chronic interstitial changes. There is focal consolidation identified within the right perihilar region. There is consolidation identified within the left lingular lobe. These findings likely represent chronic fibrotic changes. Linear scarring is noted within the left lateral lower lobe. No new focal infiltrates, pleural effusions, or pneumothorax is noted. There is no CT evidence of a filling defect identified within the primary secondary pulmonary vascular tree to suggest a pulmonary embolus. There are several prominent lymph nodes identified within the mediastinum. The largest of these is located within the right hilum and measures approximately 1.2 cm in short axis diameter. These findings, however, appear stable with respect to the prior CT scan. If there is clinical concern for a neoplastic etiology then a PET CT scan can be obtained for further evaluation. The chest wall is unremarkable. Axial images through the upper abdomen demonstrate the visualized liver, spleen , and right adrenal gland to be unremarkable. A moderate sized hiatal hernia is noted with thickening of the distal gastroesophageal junction which is likely the result of reflux. Clinical correlation is recommended. The left adrenal nodule is unchanged in size and contour with respect to the prior CT scan. Bone windows demonstrate no CT evidence of a fracture or dislocation of the visualized osseous structures. IMPRESSION: 1. CHRONIC FIBROTIC CHANGES ARE IDENTIFIED WITHIN THE RIGHT PERIHILAR REGION, LEFT LINGULAR LOBE, AND LEFT UPPER LOBE. THESE FINDINGS ARE UNCHANGED WITH RESPECT TO THE PRIOR CT SCAN. NO NEW FOCAL INFILTRATES, PLEURAL EFFUSIONS, OR PNEUMOTHORAX IS NOTED. 2. NO CT EVIDENCE OF A PULMONARY EMBOLUS. 3. PROMINENT MEDIASTINAL LYMPH NODES APPEAR SIMILAR IN SIZE AND CONTOUR WITH RESPECT TO THE PRIOR CT SCAN. THERE IS A PROMINENT LYMPH NODE IDENTIFIED WITHIN THE SUBCARINAL SPACE AND RIGHT HILUM. GIVEN ITS SIZE, NEOPLASTIC ETIOLOGY CANNOT BE EXCLUDED. IF THERE IS FURTHER CLINICAL CONCERN THEN A PET CT SCAN CAN BE OBTAINED FOR FURTHER EVALUATION. 4. THE LEFT ADRENAL NODULE IS STABLE IN SIZE AND CONTOUR WITH RESPECT TO THE PRIOR CT SCAN. 5. A SMALL HIATAL HERNIA IS NOTED WITH THICKENING OF THE GASTROESOPHAGEAL JUNCTION DISCUSSED ABOVE. THIS FINDING MAY BE RELATED TO GASTROESOPHAGEAL REFLUX. JOB NUMBER: [id number] [facility]
== END 2019-01-02 13:38 | disposition home or self-care (01) ==
LOC: ER 10:08 → MEDSURG 14:57
PROVIDERS: ADMIT Internal Medicine; ATTEND Internal Medicine
DX: R07.9 Chest pain, unspecified (principal); R59.0 Localized enlarged lymph nodes; N39.0 Urinary tract infection, site not specified; I10 Essential (primary) hypertension; E11.9 Type 2 diabetes mellitus without complications; E78.00 Pure hypercholesterolemia, unspecified; E03.9 Hypothyroidism, unspecified; I48.91 Unspecified atrial fibrillation; Z79.01 Long term (current) use of anticoagulants; Z79.4 Long term (current) use of insulin
CPT/HCPCS: 82310; 82550; 85025; 82553 ×2; 80053; 36416 ×2; 81001; 82948 ×2; 84484 ×2; 85379; 83880; 73030; 71275; 93005 ×2; 93010; G0378 ×2; Q9967; J3490 ×3; 99220; 99285

== ENCOUNTER 2019-02-16 09:43 | Observation (INO) | payer MEDICARE, BC ==
[2019-02-16] MEDS ORDERED: LISINOPRIL 20 MG TABLET PO ONE (10:03)
--- NOTE | 2019-02-16 10:03 | Emergency Department Record ---
History of Present Illness - General Chief Complaint: Fall Injury Stated Complaint: FELL OUT OF BED Time Seen by Provider: 02/16/19 09:52 Source: Patient, Family Mode of Arrival: EMS Limitations: No limitations - History of Present Illness Initial Comments: The patient is here due to rolling out of bed 2 hours ago. She has had a hx of falling onto her buttocks 6 days ago sustaining a lumbar compression fx. Since she has been having trouble getting up and walking due to the back pain. She was rolling out of bed slowly today when she could not get vertical and fell the 3 feet onto the floor. The patient denies hurting herself and denies any head injury or neck pain. Due to the previous back pain she was unable to get up. 911 was called and they brought the patient to the ER. MD Complaint: Fall Onset/Timin -: Hour(s) When Fall Occurred: 1-[address] [facility] [address] Fall Occurred: Home Loss of Consciousness: None Prolonged Down Time?: No Symptoms Prior to Fall: None Severity: Moderate Severity scale (1-10): 6 Associated Symptoms: Denies - Thea Coma Scale Eye Response: (4) Open spontaneously Motor Response: (6) Obeys commands Verbal Response: (5) Oriented [place] Total: 15 - Related Data Previous Rx's Medication Instructions Recorded Acetaminophen [Tylenol 500Mg Tab] 1,000 mg PO Q6H PRN tablet 01/02/19 Insulin Aspart [Novolog Flexpen] 2 unit SQ TIDAC ml 01/02/19 Insulin Detemir [Levemir Flextouch] 20 unit SQ BID syringe 01/02/19 Nitrofurantoin [place] [Macrobid] 100 mg PO BID #13 capsule 01/02/19 Allergies Allergy/AdvReac Type Severity Reaction Status Date / Time Penicillins Allergy Severe HIVES Verified 02/16/19 09:57 Travel Screening - Travel/Exposure Within Last 30 Days Have you traveled within the last 30 days?: No - Travel/Exposure Within Last Year Have you traveled outside the [place] in the last year?: No - Additonal Travel Details Have you been exposed to anyone with a communicable illness?: No - Travel Symptoms Symptom Screening: None Review of Systems Constitutional: Denies: Chills, Fever Eyes: Denies: Eye discharge ENT: Denies: Congestion Respiratory: Denies: Cough Cardiovascular: Denies: Arrhythmia Endocrine: Denies: Fatigue Gastrointestinal: Denies: Nausea Genitourinary: Denies: Dysuria Musculoskeletal: Reports: Back pain Skin: Denies: Bruising Past Medical History - SOCIAL HISTORY Smoking Status: Never smoker Alcohol Use: None Drug Use: None - RESPIRATORY Hx Respiratory Disorders: No - CARDIOVASCULAR Hx Cardio Disorders: Yes Hx Hypertension: Yes Hx Irregular Heartbeat: Yes (A-Fib) Comment:: high cholesterol - NEURO Hx Neuro Disorders: No - GI Hx GI Disorders: No - Hx Genitourinary Disorders: No - ENDOCRINE Hx Endocrine Disorders: Yes Hx Diabetes: Yes Hx Thyroid Disease: Yes - MUSCULOSKELETAL Hx Musculoskeletal Disorders: Yes - PSYCH Hx Psych Problems: No - HEMATOLOGY/ONCOLOGY Hx Hematology/Oncology Disorders: No Family Medical History Any Significant Family History?: Yes Hx Diabetes: Mother Physical Exam - General General Appearance: Alert, Oriented x3, Cooperative, No acute distress - Head Head exam: Atraumatic, Normocephalic, Normal inspection (There are no signs of head trauma.) - Eye Eye exam: Normal appearance, PERRL - ENT Throat exam: Normal inspection. negative: Tonsillar erythema, Tonsillar exudate - Neck Neck exam: Normal inspection. negative: Tenderness - Respiratory Respiratory exam: Normal lung sounds bilaterally. negative: Respiratory distress - Cardiovascular Cardiovascular Exam: Regular rate, Normal rhythm, Normal heart sounds - GI/Abdominal GI/Abdominal exam: Soft, Normal bowel sounds. negative: Tenderness - Extremities Extremities exam: Normal inspection, Full ROM, Normal capillary refill. negative: Tenderness - Back Back exam: Reports: Vertebral tenderness - Neurological Neurological exam: Alert, Normal gait. negative: Abnormal gait, Motor sensory deficit - Psychiatric Psychiatric exam: negative: Anxious - Skin Skin exam: negative: Rash Course Vital Signs 02/16/19 09:52 Temperature 97.8 F Pulse Rate 69 Respiratory 18 Rate Blood Pressure 217/81 Pulse Ox 97 - Reevaluation(s) Reevaluation #1: The patient is doing very well at this time. She has no leg numbness or weakness but is still having back pain. I did explain the issues with compression fx's and pain and did recommend hospital admission for a swing bed program and the patient did agree. I then did discuss the case with Venessa and she does agree to the plan to admit. 02/16/19 12:03 Medical Decision Making - Data Complexity MDM Data: Labs Ordered and/or Reviewed, X-Ray Ordered and/or Reviewed - Lab Data Result diagrams: 02/16/19 11:15 02/16/19 11:15 - Radiology Data Radiology results: Report reviewed (Lumbar xray: Age indeterminant L3 comp fx.) Disposition Disposition: Admit Clinical Impression: Lumbar compression fracture Qualifiers: Encounter type: initial encounter Lumbar vertebra fracture level: L3 Fracture type: closed Qualified Code(s): S32.030A - Wedge compression fracture of third lumbar vertebra, initial encounter for closed fracture Disposition: Still a Patient at [facility] Decision to Admit: Admit from ER Decision to Admit Date: 02/16/19 Decision to Admit Time: 12:05 Accepting Physician: Luis Time Discussed w/Accepting Physician: 12:05 Condition: (2) Stable Forms: Patient Portal Access Time of Disposition: 12:05 Quality - Quality Measures Quality Measures: N/A - Blood Pressure Screening View Details: Yes Does Patient Have Any of the Following: Active Dx of HTN Blood Pressure Classification: Pre-Hypertensive BP Reading Systolic Measurement: 217 Diastolic Measurement: 81 Screening for High Blood Pressure: Patient Exclusion, Hx of HTN [[id number]]
[2019-02-16] MEDS ORDERED: CARVEDILOL 3.125 MG TABLET PO SCH (10:15)
[2019-02-16] MEDS ORDERED: ACETAMINOPHEN 325 MG TAB PO ONE (10:18)
[2019-02-16 11:23] LABS: HEMATOCRIT 39.1 % (35.0-47.0); HEMOGLOBIN 12.4 gm/dl (11.6-16.0); MEAN CELL VOLUME 90.9 fl (81-97); MEAN CORPUSCULAR HEMOGLOBIN 28.8 pg (27-33); MEAN CORPUSCULAR HGB CONC 31.7 g/dl (32-36); MEAN PLATELET VOLUME 10.2 fl (7.4-10.4); PLATELET COUNT 278 K/uL (130-400); RED CELL DISTRIBUTION WIDTH 16.6 % (11.5-14.5); WHITE BLOOD COUNT W/O DIFF 6.9 K/uL (4.2-12.2)
[2019-02-16 11:34] LABS: BLOOD UREA NITROGEN 17 mg/dL (8-23); CREATININE 0.8 mg/dL (0.5-0.9); EST GLOMERULAR FILTRATION RATE > 60 mL/min; TOTAL PROTEIN 6.8 g/dL (6.6-8.7)
[2019-02-16 11:36] LABS: GLUCOSE,RANDOM 184 mg/dL (74-109)
[2019-02-16 11:39] LABS: ALB/GLOB RATIO 1.2 (1.1-1.8); ALBUMIN 3.7 g/dL (4.0-5.0); ALKALINE PHOSPHATASE 83 U/L (35-104); ALT/SGPT 6 U/L (<33); AST/SGOT 11 U/L (10.0-35.0)
[2019-02-16 11:41] LABS: PARTIAL THROMBOPLASTIN TIME 30.4 SECONDS (24.5-39.1); PROTHROMBIN TIME (PATIENT) 9.8 SECONDS (9.5-12.1)
[2019-02-16] MEDS: NOVOLOG FLEXPEN (INSULIN ASPART) 100 UNITS/ML SQ SCH (18:47)
[2019-02-16] MEDS: LEVEMIR FLEXTOUCH 100 UNIT/ML INSULIN PEN SQ SCH ×2 (18:49→21:28)
[2019-02-16] MEDS ORDERED: HYDRALAZINE 20MG/ML VIAL IV PRN (20:40)
[2019-02-16] MEDS: ACETAMINOPHEN 325 MG TAB PO PRN (21:26)
[2019-02-16] MEDS: CARVEDILOL 3.125 MG TABLET PO SCH (21:27)
[2019-02-16] MEDS: APIXABAN 2.5MG TABLET PO SCH (21:28)
[2019-02-16] MEDS: NITROFURANTOIN MONO 100 MG CAPSULE PO SCH (21:28)
[2019-02-16] MEDS: METFORMIN 500 MG TABLET PO SCH (21:28)
[2019-02-16] MEDS ORDERED: SIMVASTATIN 10MG TABLET PO SCH (22:00)
[2019-02-17] MEDS: ACETAMINOPHEN 325 MG TAB PO PRN ×2 (04:34→11:31)
[2019-02-17] MEDS: LEVOTHYROXINE SODIUM 88 MCG TABLET PO SCH ×2 (06:30→10:34)
--- NOTE | 2019-02-17 07:56 | RADIOLOGY REPORT ---
EXAM: LUMBAR SPINE HISTORY: FALL, LOWER BACK PAIN. TECHNIQUE: Four views of the lumbar spine were obtained. Comparison: None. FINDINGS: Five non-rib bearing lumbar type vertebral bodies are counted. Mild to moderate compression deformity involving the L3 vertebral body. The remaining vertebral body heights appear maintained. Straightening of the lumbar lordosis, otherwise intact alignment. Significant disk space height loss at L4-L5 and L5-S1. Diffuse facet joint arthrosis, most pronounced at the lower lumbar levels. IMPRESSION: 1. AGE INDETERMINATE COMPRESSION OF THE L3 VERTEBRAL BODY. 2. MULTILEVEL LUMBAR DISK DEGENERATION AND FACET JOINT ARTHROSIS. JOB NUMBER: [id number] MTDD
[2019-02-17] MEDS: NOVOLOG FLEXPEN (INSULIN ASPART) 100 UNITS/ML SQ SCH ×2 (08:27→12:36)
--- NOTE | 2019-02-17 08:41 | History & Physical ---
History of Present Illness - Date of Service Date of Service for History & Physical: 02/17/19 - History of Present Illness Admitting Diagnosis: 1. Lumbar Compression Fracture with inability to walk. History of Present Illness: 88 year old female patient presented to ED for lumbar back pain. Patient states she fell from a standing position 6 days ago, and was found to have sustained a lumbar compression fracture. Patient states yesterday she rolled out of bed onto the floor and was unable to get up. Patient lives home alone. Patient reports increased difficulty with ambulation and walking due to the back pain from the recent fracture. Patient denies hitting her head, neck pain , or any new injury from rolling out of bed. Patient states she is currently on macrobid for a UTI. Patient states she has 6 days left on the antibiotics. Patient reports recurrent UTIs. Past medical history includes: Afib (Eliquis), HTN and DM PCP: Dr. Heidi Lazo ED Course: Temp 97.8F, HR 69, RR 18, BP 217/81, Pulse ox 97% Lumbar spine xray: mild L3 compression fracture CBC and CMP unremarkable 02/17/19: Patient A&O x 4, resting comfortably in bed. Patient denies pain while laying flat. Patient reports increased pain with movement and ambulation. Denies weakness, urinary or bladder changes. Patient reports adequate pain control with tylenol at this time. PT/OT to evaluate. Dispo [facility] vs home PT/OT services. Travel Screening - Travel/Exposure Within Last 30 Days Have you traveled within the last 30 days?: No - Travel/Exposure Within Last Year Have you traveled outside the [place] in the last year?: No - Additonal Travel Details Have you been exposed to anyone with a communicable illness?: No - Travel Symptoms Symptom Screening: None Review of Systems Reviewed: No additional complaints except as noted below Constitutional: Denies: Chills, Fever Eyes: Denies: Eye discharge ENT: Denies: Congestion Respiratory: Denies: Cough Cardiovascular: Denies: Arrhythmia Endocrine: Denies: Fatigue Gastrointestinal: Denies: Nausea Genitourinary: Denies: Dysuria Musculoskeletal: Reports: Back pain Skin: Denies: Bruising Past Medical History - SOCIAL HISTORY Smoking Status: Never smoker Alcohol Use: None Drug Use: None - RESPIRATORY Hx Respiratory Disorders: No - CARDIOVASCULAR Hx Cardio Disorders: Yes Hx Hypertension: Yes Hx Irregular Heartbeat: Yes (A-Fib) Comment:: high cholesterol - NEURO Hx Neuro Disorders: No - GI Hx GI Disorders: No - Hx Genitourinary Disorders: No - ENDOCRINE Hx Endocrine Disorders: Yes Hx Diabetes: Yes Hx Thyroid Disease: Yes - MUSCULOSKELETAL Hx Musculoskeletal Disorders: Yes - PSYCH Hx Psych Problems: No - HEMATOLOGY/ONCOLOGY Hx Hematology/Oncology Disorders: No Family Medical History Any Significant Family History?: Yes Hx Diabetes: Mother H&P Meds/Allergies - Allergies Allergies: Allergies Allergy/AdvReac Type Severity Reaction Status Date / Time Penicillins Allergy Severe HIVES Verified 02/16/19 09:57 - Home Medications Previous Rx's Medication Instructions Recorded Acetaminophen [Tylenol 500Mg Tab] 1,000 mg PO Q6H PRN tablet 01/02/19 Insulin Aspart [Novolog Flexpen] 2 unit SQ TIDAC ml 01/02/19 Insulin Detemir [Levemir Flextouch] 20 unit SQ BID syringe 01/02/19 Nitrofurantoin [place] [Macrobid] 100 mg PO BID #13 capsule 01/02/19 - Active Medications Active Medications: Current Medications Acetaminophen (Tylenol 325mg) 650 mg PO Q6H PRN PRN Reason: PAIN - MILD(1-4)/FEVER Last Admin: 02/17/19 04:34 Dose: 650 mg Apixaban (Eliquis) 2.5 mg PO BID [facility] Last Admin: 02/16/19 21:28 Dose: 2.5 mg Aspirin (Ecotrin (Ec)) 81 mg PO DAILY [facility] Carvedilol (Coreg) 6.25 mg PO BID [facility] Last Admin: 02/16/19 21:27 Dose: 6.25 mg Hydralazine HCl (Apresoline) 10 mg IV Q4H PRN PRN Reason: BLOOD PRESSURE Insulin Aspart (Novolog Flexpen) 2 unit SQ TIDAC [facility] Last Admin: 02/17/19 08:27 Dose: 2 unit Insulin Detemir (Levemir Flextouch) 20 unit SQ BID [facility] Last Admin: 02/16/19 21:28 Dose: Not Given Levothyroxine Sodium (Synthroid) 88 mcg PO DAILY [facility] Last Admin: 02/17/19 06:30 Dose: 88 mcg Lisinopril (Zestril) 40 mg PO DAILY [facility] Metformin HCl (Glucophage Ir) 500 mg PO BID [facility] Last Admin: 02/16/19 21:28 Dose: 500 mg Nitrofurantoin Macrocrystals (Macrobid) 100 mg PO BID [facility] Last Admin: 02/16/19 21:28 Dose: 100 mg Non-Formulary Medication (Sitagliptin Phosphate [Januvia]) 100 mg PO DAILY [facility] Simvastatin (Zocor) 10 mg PO QHS [facility] Last Admin: 02/16/19 21:28 Dose: 10 mg Physical Exam - Vital Signs Vital Signs: Vital Signs - Last 24 Hrs Temp Pulse Pulse Resp BP BP BP 02/17/19 06:26 68 18 156/75 02/16/19 23:00 185/79 02/16/19 20:00 99 F 74 16 207/87 02/16/19 14:05 97.5 F L 71 16 202/82 204/76 02/16/19 12:01 97.9 F 67 16 177/61 02/16/19 10:56 181/78 02/16/19 10:03 213/74 02/16/19 09:52 97.8 F 69 18 217/81 Pulse Ox 02/17/19 06:26 96 02/16/19 23:00 02/16/19 20:00 94 L 02/16/19 14:05 96 02/16/19 12:01 02/16/19 10:56 02/16/19 10:03 02/16/19 09:52 97 - General General Appearance: Alert, Oriented x3, Cooperative, No acute distress Limitations: No limitations - Head Head exam: Atraumatic, Normocephalic, Normal inspection - Eye Eye exam: Normal appearance, PERRL - ENT Throat exam: Normal inspection. negative: Tonsillar erythema, Tonsillar exudate - Neck Neck exam: Normal inspection. negative: Tenderness - Respiratory Respiratory exam: Normal lung sounds bilaterally. negative: Respiratory distress - Cardiovascular Cardiovascular Exam: Normal rhythm, Normal heart sounds Peripheral Pulses: 2+: Radial (R), Radial (L), Dorsalis Pedis (R), Dorsalis Pedis (L) - GI/Abdominal GI/Abdominal exam: Soft, Normal bowel sounds. negative: Tenderness - Rectal Rectal exam: Deferred - exam: Deferred - Extremities Extremities exam: Normal inspection, Full ROM, Normal capillary refill. negative: Tenderness - Back Back exam: Reports: Vertebral tenderness (lumbar) - Neurological Neurological exam: Alert, Oriented X3. negative: Abnormal gait, Motor sensory deficit - Psychiatric Psychiatric exam: Normal affect, Normal mood. negative: Anxious - Skin Skin exam: Dry, Warm. negative: Rash Results - Labs Result Diagrams: 02/16/19 11:15 02/16/19 11:15 Labs Last 24 Hours: Laboratory Results - last 24 hr 02/16/19 02/16/19 02/16/19 11:15 11:15 11:15 WBC 6.9 RBC 4.30 Hgb 12.4 Hct 39.1 MCV 90.9 MCH 28.8 MCHC 31.7 L RDW 16.6 H Plt Count 278 MPV 10.2 Neutrophils % 73.0 Eosinophils % Not Reportable Basophils % Not Reportable Lymphocytes 13.0 L Monocytes 7.0 Eosinophil Count 7.0 H PT 9.8 INR 1.0 APTT 30.4 Sodium 139 Potassium 4.2 Chloride 104 Carbon Dioxide 23.0 Anion Gap 12.0 BUN 17 Creatinine 0.8 Estimated GFR > 60 POC Glucose Random Glucose 184 H Calcium 10.3 H Total Bilirubin 0.40 AST 11 ALT 6 Alkaline Phosphatase 83 Total Protein 6.8 Albumin 3.7 L Globulin 3.1 Albumin/Globulin Ratio 1.2 02/16/19 02/16/19 17:45 23:23 WBC RBC Hgb Hct MCV MCH MCHC RDW Plt Count MPV Neutrophils % Eosinophils % Basophils % Lymphocytes Monocytes Eosinophil Count PT INR APTT Sodium Potassium Chloride Carbon Dioxide Anion Gap BUN Creatinine Estimated GFR POC Glucose 250 H 223 H Random Glucose Calcium Total Bilirubin AST ALT Alkaline Phosphatase Total Protein Albumin Globulin Albumin/Globulin Ratio VTE H&P Assessment - Risk for VTE Risk for VTE: Yes Risk Level: Moderate Risk Assessment Date: 02/17/19 Risk Assessment Time: 10:23 VTE Orders Placed or Will Be Placed: No VTE Reason for No Prophylaxis: Contraindicated (Will continue current dose of Eliquis and ASA) Plan - Inpatient Certification Inpatient Certification: Admit to inpatient care: Based on my medical assessment, after consideration of patient's risk factors (age, co-morbidities and patient presenting symptoms and acuity), I expect that this patient will remain in the hospital greater than or equal to two midnights and that the services needed warrant inpatient care because: Patient Risk Factors: [] Estimated length of stay: [] The patient may reasonably be expected to be discharged or transferred to a hospital within 96 hours after admission to [facility]. Services needed: [] Post hospital care (if known): [] I certify that my determination is in accordance with my understanding of Medicare requirements for reasonable and necessary inpatient services. - Detailed Diagnosis and Plan (1) Lumbar compression fracture Current Visit: Yes Status: Acute Qualifiers: Encounter type: initial encounter Lumbar vertebra fracture level: L3 Fracture type: closed Qualified Code(s): S32.030A - Wedge compression fracture of third lumbar vertebra, initial encounter for closed fracture Base Code: S32.000A - WEDGE COMPRESSION FRACTURE OF UNSP LUMBAR VERTEBRA, INIT Comment: 02/17/19: -Patient reports a fall 6 days ago -Lumbar spine xray: mild L3 compression deformity -Tylenol 650mg q6h prn pain -Patient declines any additional pain medications at this time (2) Weakness Current Visit: Yes Status: Acute Base Code: R53.1 - WEAKNESS Comment: 02/17: -Patient reports weakness and difficulty getting up out of bed at this time due to L3 fracture -Patient reports living home alone prior to the fall -PT/OT to evaluate (3) Hypertension Current Visit: No Status: Acute Qualifiers: Hypertension type: essential hypertension Qualified Code(s): I10 - Essential (primary) hypertension Base Code: I10 - ESSENTIAL (PRIMARY) HYPERTENSION Comment: 02/17/19: -Multiple elevated BP readings, 156/75 today after receiving home meds -Continue home dose of Carvedilol 6.25mg PO BID -Continue home dose of Lisinopril 40mg daily -Hydralazine 10mg q4h prn SBP>160, no doses given so far -Recommend f/u with PCP for BP management (4) Diabetes mellitus, type II Current Visit: No Status: Acute Qualifiers: Diabetes mellitus snf insulin use: 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
[2019-02-17] MEDS ORDERED: ASPIRIN 81 MG TABEC PO SCH (10:00)
[2019-02-17] MEDS ORDERED: LISINOPRIL 20 MG TABLET PO SCH (10:00)
[2019-02-17] MEDS ORDERED: Non-Formulary MISC (Sitagliptin Phosphate [Januvia] 100 MG) PO SCH (10:00)
[2019-02-17] MEDS: LEVEMIR FLEXTOUCH 100 UNIT/ML INSULIN PEN SQ SCH (10:32)
[2019-02-17] MEDS: NITROFURANTOIN MONO 100 MG CAPSULE PO SCH (10:34)
[2019-02-17] MEDS: METFORMIN 500 MG TABLET PO SCH (10:34)
[2019-02-17] MEDS: CARVEDILOL 3.125 MG TABLET PO SCH (10:34)
[2019-02-17] MEDS: APIXABAN 2.5MG TABLET PO SCH (10:34)
[2019-02-17] MEDS ORDERED: JANUVIA 100 MG PO SCH (11:30)
--- NOTE | 2019-02-17 12:41 | Rehab Evaluation ---
Patient Information - Patient Information Diagnosis: Lumbar compression fx w/inability to walk Ordered Treatment: PT Evaluate and Treat Status: Initial Evaluation Surgery: No History: Detail (Pt presented to ED by ambulance on 02/16/18, after rolling out of bed onto the floor and being unable to get up by herself. She had fallen several days earlier while standing in the kitchen and had debilitating back pain, with subsequent L3 compression fx discovered in ED. She was admitted to [facility] for further medical evaluation.) Past Medical/Surgical Hx: PAST MEDICAL/SURGICAL HISTORY Past Surgical History Cholecysectomy Tonsillectomy esophageal dilation PMH - Respiratory Hx Respiratory Disorders No PMH - Cardiovascular Hx Cardiovascular Disorders Yes Hx Hypertension Yes Hx Irregular Heartbeat Yes: A-Fib Comment: high cholesterol PMH - Neuro Hx Neurological Disorders No PMH - GI Hx Gastrointestinal Disorders No PMH - Hx Genitourinary Disorders No Patient No PMH - Endocrine Hx Endocrine Disorders Yes Hx Diabetes Yes Hx Thyroid Disease Yes PMH - Musculoskeletal Hx Musculoskeletal Disorders Yes PMH - Psych Hx Psychiatric Problems No PMH - Hematology/Oncology Hx Hematology/Oncology No Disorders Premorbid Status: Detail (Pt reports recurrent UTI over the past year, hospitalized for UTI at [facility] about a year ago with subsequent prolonged rehab ([facility]) through April 2018. She was not using assistive device for ambulation most recently, was living independently, and was driving.) Social History: Detail (Pt lives alone in a single story home w/a basement, but she doesn't need to go to the basement, as laundry is on main level. She has three children in the area who check on her frequently (daughter Windy, sons Jag and Jason) and assist as needed. She has one step to enter the home, with a grab bar at the door. She has tub/shower combo w/hand held shower, elevated toilet in one bathroom, and standard toilet in second bathroom. She has a front -wheeled walker, four wheeled walker w/seat, and shower bench. She was driving and participating in social activities prior to admission.) Precautions: [place], Fall - Time With Patient Total Time Spent With Patient (Min): 45 Treatment Procedures: Detail (PT Evaluation) Subjective Information - Subjective Information Per Patient (Pt reports back pain with movement, sitting upright, and walking. Feels best lying flat. Cooperative for evaluation.) Objective Data - Pain Pain Present: Yes Pain Intensity: 8 (With bed mobility) Pain Scale Used: Numeric (1 - 10) - Mental Status Patient Orientation: Oriented x3 - Visual Perception Appears within normal limits for therapeutic activities - ROM Within normal limits (UE and LE AROM is grossly within functional limits for mobility activities. Not assessed in trunk.), Other - Strength/Tone Not within normal limits (Grossly 3/5 in proximal LE's, 4/5 in knee flexion/ extension and ankle df.) - Coordination Appears within normal limits for therapeutic activities - Bed Mobility Needs Assist (Instructed in log rolling to splint lumbar spine, and controlled sidelying<>sit. Required minimal assist to maintain alignment with bed mobility.) - Transfers Needs Assist (Required supervision only for sit<>stand transfers from bedside <> walker, walker<>toilet.) - Balance Balance Sitting: Good Balance Standing: Good (With front wheeled walker.) - Sensation Intact - Gait Detail (Ambulated with front wheeled walker from bedside to bathroom for toileting and washing hands, then out into hallway to far end, and back to bedside (about 110 feet total), with contact guard/standby assist. No LOB noted or unsteadiness with gait.) Therapy Assessment - Therapy Assessment Detail (Pt exhibits proximal LE weakness and activity intolerance due to low back pain. She is a good candidate for short-term rehab or home therapy upon discharge.) Patient Education - Patient Education Teaching Topic: Disease Process, Exercise/Activity Response: Reinforcement Needed, Verbalize Understanding Teaching Method: Discussion Teaching Recipient: Patient Barriers To Learning: None Problem List - Problem List Physical Therapy Problem List: Detail (1. Requires assist for bed mobility. 2. Proximal LE weakness. 3. Activity intolerance.) Goals - Goals Physical Therapy Goals: 1. Pt will be independent w/bed mobility. 2. Pt will safely and independently ambulate with front wheeled walker over household distances. 3. Pt will be independent in basic therapeutic exercise program. Prognosis - Prognosis Good Plan - Plan Physical Therapy Plan: Pt will be seen 1-2x daily M-F for bed mobility training , transfer and gait training, and instruction in LE strengthening exercises, pending transfer to short term rehab or assisted living facility.
--- NOTE | 2019-02-17 12:52 | Discharge Summary ---
Providers Discharge Summary Date: 02/17/19 Date of admission: 02/16/19 13:41 Expected Date of Discharge: 02/17/19 Attending physician: NAOMI COSTA Primary care physician: NICOLAS LAMAR Physical Exam - Vital Signs Vital Signs: Vital Signs - Last 24 Hrs Temp Pulse Resp BP BP Pulse Ox 02/17/19 06:26 68 18 156/75 96 02/16/19 23:00 185/79 02/16/19 20:00 99 F 74 16 207/87 94 L 02/16/19 14:05 97.5 F L 71 16 202/82 204/76 96 - General General Appearance: Alert, Oriented x3, Cooperative, No acute distress Limitations: No limitations - Head Head exam: Atraumatic, Normocephalic, Normal inspection - Eye Eye exam: Normal appearance, PERRL - ENT Throat exam: Normal inspection. negative: Tonsillar erythema, Tonsillar exudate - Neck Neck exam: Normal inspection. negative: Tenderness - Respiratory Respiratory exam: Normal lung sounds bilaterally. negative: Respiratory distress - Cardiovascular Cardiovascular Exam: Normal rhythm, Normal heart sounds Peripheral Pulses: 2+: Radial (R), Radial (L), Dorsalis Pedis (R), Dorsalis Pedis (L) - GI/Abdominal GI/Abdominal exam: Soft, Normal bowel sounds. negative: Tenderness - Rectal Rectal exam: Deferred - exam: Deferred - Extremities Extremities exam: Normal inspection, Full ROM, Normal capillary refill. negative: Tenderness - Back Back exam: Reports: Vertebral tenderness (lumbar) - Neurological Neurological exam: Alert, Oriented X3. negative: Abnormal gait, Motor sensory deficit - Psychiatric Psychiatric exam: Normal affect, Normal mood. negative: Anxious - Skin Skin exam: Dry, Warm. negative: Rash Hospitalization - Hospitalization Admission Diagnosis: 1. Lumbar Compression Fracture with inability to walk. - Problem List/Discharge Diagnosis (1) Lumbar compression fracture Current Visit: Yes Status: Acute Discharge Diagnosis: Encounter type: initial encounter Lumbar vertebra fracture level: L3 Fracture type: closed Qualified Code(s): S32.030A - Wedge compression fracture of third lumbar vertebra, initial encounter for closed fracture Base Code: S32.000A - WEDGE COMPRESSION FRACTURE OF UNSP LUMBAR VERTEBRA, INIT Comment: 02/17/19: -Patient reports a fall 6 days ago -Lumbar spine xray: mild L3 compression deformity -Tylenol 650mg q6h prn pain -Patient declines any additional pain medications at this time (2) Weakness Current Visit: Yes Status: Acute Base Code: R53.1 - WEAKNESS Comment: 02/17: -Patient reports weakness and difficulty getting up out of bed at this time due to L3 fracture -Patient reports living home alone prior to the fall -PT/OT to evaluate -Patient to be discharged to [facility] with PT/OT services (3) Hypertension Current Visit: No Status: Acute Discharge Diagnosis: Hypertension type: essential hypertension Qualified Code(s): I10 - Essential (primary) hypertension Base Code: I10 - ESSENTIAL (PRIMARY) HYPERTENSION Comment: 02/17/19: -Multiple elevated BP readings, 156/75 today after receiving home meds -Continue home dose of Carvedilol 6.25mg PO BID -Recommend f/u with PCP for BP management (4) Diabetes mellitus, type II Current Visit: No Status: Acute Discharge Diagnosis: Diabetes mellitus group home insulin use: with oil heaterman use Base Code: E11.9 - TYPE 2 DIABETES MELLITUS WITHOUT COMPLICATIONS Comment: : -Continue Levemir to 20 units BID -Continue home dose of Metformin 500mg PO BID -Continue home Januvia -Accucheck AC/HS (5) DVT prophylaxis Current Visit: No Status: Acute Base Code: [id number] - Comment: 02/17/19: -High Risk d/t age, Afib dx, fracutre, and hospitalization -Continue home dose of Eliquis 2.5mg PO BID -Nursing to encourage ambulation (6) DNR (do not resuscitate) Current Visit: Yes Status: Acute Base Code: Z66 - DO NOT RESUSCITATE Comment: 02/17/19: -Patient DNR -Treatment form completed - Disposition [facility] - Hospitalization Course Hospital Course: 88 year old female patient presented to ED for lumbar back pain. Patient states she fell from a standing position 6 days ago, and was found to have sustained a lumbar compression fracture. Patient states yesterday she rolled out of bed onto the floor and was unable to get up. Patient lives home alone. Patient reports increased difficulty with ambulation and walking due to the back pain from the recent fracture. Patient denies hitting her head, neck pain , or any new injury from rolling out of bed. Patient states she is currently on macrobid for a UTI. Patient states she has 6 days left on the antibiotics. Patient reports recurrent UTIs. Past medical history includes: Afib (Eliquis), HTN and DM PCP: Dr. Nicolas Lazo ED Course: Temp 97.8F, HR 69, RR 18, BP 217/81, Pulse ox 97% Lumbar spine xray: mild L3 compression fracture CBC and CMP unremarkable 02/17/19: Patient A&O x 4, resting comfortably in bed. Patient denies pain while laying flat. Patient reports increased pain with movement and ambulation. Denies weakness, urinary or bladder changes. Patient reports adequate pain control with tylenol at this time. PT/OT to evaluate. Dispo [facility] vs home PT/OT services. UPDATE: Patient declines any further pain control outside of Tylenol. Will continue with current treatment regimen. Patient to be discharged to [facility] with PT/OT services. Chest x-ray: LLL atelectasis v pneumonia. Old right perihilar nodule noted, similar to that of exam on 01/17/18. Pneumonia not likely due to patient being asymptomatic, afebrile, no WBC. Patient to follow-up with PCP for further evaluation and surveillance of perihilar nodule. Procedures: Imaging and X-Rays 02/16/19 09:53 LUMBAR SPINE / AP LAT [RAD] Stat 02/17/19 10:30 CHEST 1 VIEW [RAD] Stat Abnormal Labs: Abnormal Lab Results 02/16/19 02/16/19 02/16/19 Range/Units 11:15 11:15 17:45 MCHC 31.7 L (32-36) g/dl RDW 16.6 H (11.5-14.5) % Lymphocytes 13.0 L (16-45) % Eosinophil Count 7.0 H (0-6) % POC Glucose 250 H (70-110) mg/dL Random Glucose 184 H (74-109) mg/dL Calcium 10.3 H (8.8-10.2) mg/dL Albumin 3.7 L (4.0-5.0) g/dL 02/16/19 02/17/19 02/17/19 Range/Units 23:23 07:30 11:28 MCHC (32-36) g/dl RDW (11.5-14.5) % Lymphocytes (16-45) % Eosinophil Count (0-6) % POC Glucose 223 H 187 H 279 H (70-110) mg/dL Random Glucose (74-109) mg/dL Calcium (8.8-10.2) mg/dL Albumin (4.0-5.0) g/dL Condition at Discharge: (2) Stable Discharge Medications - Discharge Medications Home Medications: Ambulatory Orders Aspirin [Aspir-Low] 81 mg PO DAILY 12/28/17 [Last Taken 02/16/19] Lisinopril 40 mg PO DAILY 12/28/17 [Last Taken 02/16/19] Metformin HCl 500 mg PO BID 12/28/17 [Last Taken 02/16/19] Pravastatin Sodium [Pravachol] 20 mg PO QHS 12/28/17 [Last Taken 02/16/19] Sitagliptin Phosphate [Januvia] 100 mg PO DAILY 12/28/17 [Last Taken 02/16/19] Carvedilol 6.25 mg PO BID 01/26/18 [Last Taken 02/16/19] Apixaban [Eliquis] 2.5 mg PO BID 01/01/19 [Last Taken 02/16/19] Cranberry/B.coagulan/C/Calcium [Cranberry-Probiotic Tablet] 1 each PO DAILY 08/11 [Last Taken 02/16/19] Ferrous Sulfate [High Potency Iron] 27 mg PO DAILY 01/01/19 [Last Taken 02/16/19 ] Levothyroxine Sodium 88 mcg PO DAILY 01/01/19 [Last Taken 02/16/19] Acetaminophen [Tylenol 500Mg Tab] 1,000 mg PO Q6H PRN tablet 01/02/19 [Last Taken Unknown] Insulin Aspart [Novolog Flexpen] 2 unit SQ TIDAC ml 01/02/19 [Last Taken ] Insulin Detemir [Levemir Flextouch] 20 unit SQ BID syringe 01/02/19 [Last Taken 02/16/19] Nitrofurantoin Sharkey [Macrobid] 100 mg PO BID #13 capsule 02/17/19 [Last Taken ] Discharge Plan - Discharge Instructions Activity at Discharge: As Per Physical Therapy Diet at Discharge: Advance to Usual Diet Additional Instructions: -Continue Macrobid (Nitrofurantoin) for 6 more days for UTI -Follow-up with PCP regarding right perihilar nodule noted on chest x-ray today. Nodule was also noted on scan in 01/17/2018. -Continue with Tylenol 1000mg q6h prn pain Quality Measures - Quality Measures Quality Measures: Advance Directives, Documentation of Current Medications in Medical Record, Elder Maltreatment Screen and Follow-Up Plan, Screening for High Blood Pressure and F/U Documented - Current Medications Quality Measure: Measure #130: Documentation of Current Medications Documentation of Current Medications: <Current Medications Documented/Reviewed> [G9794] - Blood Pressure Screening Quality Measure: Screening for High Blood Pressure and Follow-Up Documented Does Patient Have Any of the Following: Active Dx of HTN Blood Pressure Classification: Pre-Hypertensive BP Reading Systolic Measurement: 217 Diastolic Measurement: 81 Screening for High Blood Pressure: Patient Exclusion, Hx of HTN [G9744] - Advance Directives Quality Measure: Measure #47: Care Plan Advance Directives Established: No Advance Directives Information Provided To Patient: Declined Advance Directives on File: No Living Will: Yes Power of Head Porter: Yes Power of Head Porter Name: Jason Hewitt Advance Care Planning: <Care Plan/Decision Maker Not Decided; Discussed & Documented> [3243F] - Elder Abuse Suspicion Index Screening: Elder Abuse Suspicion Index Screening Rely on people for bathing, dressing, shopping, banking, etc: Yes Prevented from getting food, clothes, medication, etc: No Made to feel shamed or threatened by someone: No Forced to sign papers or use money against will: No Feel afraid, touched in ways not wanted or hurt physically: No Poor eye contact, withdrawn, malnourished, cuts or bruises: No Screening Result: Negative result EASI Reference Information: Deric ECHEVARRIA, Kate C, Cyndee D, Thuan M.Development and validation of a tool to assist physicians identification of elder abuse: The Elder Abuse Suspicion Index (EASI ). Journal of Elder Abuse and Neglect, 2008; 20 (3): 276-300. - Elder Maltreatment Screen Quality Measures: Elder Maltreatment Screen and Follow-Up Plan Elder Maltreatment Screen: <Negative, No Follow-Up Plan Required> [G8734]
--- NOTE | 2019-02-17 13:14 | RADIOLOGY REPORT ---
EXAM: CHEST 1 VIEW HISTORY: Assisted living placement. TECHNIQUE: Single frontal view of the chest. FINDINGS: Cardiac silhouette within normal size limits. Thoracic aorta is calcified. Patchy opacities in the left lung base. Blunting of the left lateral costophrenic angle, could represent trace portal fluid. There is a rounded nodular soft tissue density structure in the right perihilar region which appears more prominent from taxation consultant radiograph from CTA performed 12/28/2017. No visible pneumothorax. IMPRESSION: 1. Patchy left lung opacities, may represent atelectasis or pneumonia. 2. Blunting of the left lateral costophrenic angle, possibly a trace plural effusion. 3. Increased prominence of the right perihilar nodule form 12/28/2017 CT comparison, can not exclude a slowly progressive neoplastic process, further evaluation with a PET-CT recommended. JOB NUMBER: [id number] MTDD
== END 2019-02-17 14:15 ==
LOC: ER 09:43 → INTOOBSV 13:41 → MEDSURG 13:41
PROVIDERS: ADMIT Internal Medicine; ATTEND Internal Medicine
DX: S32.030A Wedge compression fracture of third lumbar vertebra, initial encounter for closed fracture (principal); R26.2 Difficulty in walking, not elsewhere classified; R53.1 Weakness; I10 Essential (primary) hypertension; I48.91 Unspecified atrial fibrillation; Z79.01 Long term (current) use of anticoagulants; E78.00 Pure hypercholesterolemia, unspecified; E03.9 Hypothyroidism, unspecified; W06.XXXA Fall from bed, initial encounter; Z91.81 History of falling; Z66 Do not resuscitate
CPT/HCPCS: 85730; 85610; 80053; 36416 ×2; 82948 ×2; 85027; 71045; 72100; G0378 ×2; J3490 ×3; 99220; 99285

== ENCOUNTER 2019-04-26 07:48 | Emergency (ER) | payer MEDICARE, BC ==
--- NOTE | 2019-04-26 07:56 | Emergency Department Record ---
History of Present Illness - General Stated Complaint: FALL Time Seen by Provider: 04/26/19 07:51 Source: Patient, EMS Mode of Arrival: Ambulatory Limitations: No limitations - History of Present Illness Initial Comments: 88 yo female on Eliquis fell at a local SNF just prior to arrival. She states she does not have any pain or injuries but he did hit her head. No headache, d izziness, weakness, other pains or injuries. She states her health has not changed recently. She does confirm she is taking her Eliquis. Complaint: Fall -: Minutes(s) Fall From: Standing When Fall Occurred: Just prior to arrival Fall Witnessed: Yes, by living facility staff Place Fall Occurred: [facility] Loss of Consciousness: None Prolonged Down Time?: No Symptoms Prior to Fall: None Location: Head Severity: Mild Quality: Other Context: Other Associated Symptoms: Denies - Thea Coma Scale Eye Response: (4) Open spontaneously Motor Response: (6) Obeys commands Verbal Response: (5) Oriented Thea Total: 15 - Related Data Home Medications Medication Instructions Recorded Confirmed Last Taken Loperamide HCl [Imodium A-D] 2 mg PO QID PRN 04/26/19 04/26/19 Unknown Tramadol HCl [Ultram] 50 mg PO Q8H PRN 04/26/19 04/26/19 Unknown Previous Rx's Medication Instructions Recorded Acetaminophen [Tylenol 500Mg Tab] 1,000 mg PO Q6H PRN tablet 01/02/19 Insulin Aspart [Novolog Flexpen] 2 unit SQ TIDAC ml 01/02/19 Insulin Detemir [Levemir Flextouch] 20 unit SQ BID syringe 01/02/19 Allergies Allergy/AdvReac Type Severity Reaction Status Date / Time Penicillins Allergy Severe HIVES Verified 04/26/19 08:10 Review of Systems Constitutional: Denies: Chills, Fever, Weakness Eyes: Denies: Eye discharge, Eye pain, Vision change ENT: Denies: Congestion, Throat pain Respiratory: Denies: Cough Cardiovascular: Denies: Chest pain, Edema, Palpitations, Syncope Endocrine: Denies: Fatigue Gastrointestinal: Denies: Abdominal pain, Diarrhea, Nausea, Vomiting Genitourinary: Denies: Dysuria, Urgency Musculoskeletal: Denies: Arthralgia, Back pain, Myalgia Skin: Denies: Bruising, Change in color, Rash Neurological: Denies: Confusion, Headache, Numbness, Tingling, Vertigo, Weakness Psychiatric: Denies: Anxiety Hematological/Lymphatic: Denies: Blood Clots, Easy bleeding, Easy bruising, Swollen glands Past Medical History - SOCIAL HISTORY Smoking Status: Never smoker Drug Use: None - RESPIRATORY Hx Respiratory Disorders: No - CARDIOVASCULAR Hx Cardio Disorders: Yes Hx Hypertension: Yes Hx Irregular Heartbeat: Yes (A-Fib) Comment:: high cholesterol - NEURO Hx Neuro Disorders: No - GI Hx GI Disorders: No - Hx Genitourinary Disorders: No - ENDOCRINE Hx Endocrine Disorders: Yes Hx Diabetes: Yes Hx Thyroid Disease: Yes - MUSCULOSKELETAL Hx Musculoskeletal Disorders: Yes - PSYCH Hx Psych Problems: No - HEMATOLOGY/ONCOLOGY Hx Hematology/Oncology Disorders: No Family Medical History Hx Diabetes: Mother Physical Exam - General General Appearance: Alert, Oriented x3, Cooperative, No acute distress Limitations: No limitations - Head Head exam: Atraumatic, Normal inspection - Eye Eye exam: Normal appearance, PERRL, EOMI. negative: Conjunctival injection, Periorbital swelling, Scleral icterus - ENT ENT exam: Normal exam, Mucous membranes moist, Normal orophraynx Ear exam: Normal external inspection Nasal Exam: Normal inspection Mouth exam: Normal external inspection Teeth exam: Normal inspection Throat exam: Normal inspection - Neck Neck exam: Normal inspection, Full ROM. negative: Meningismus, Tenderness - Respiratory Respiratory exam: Normal lung sounds bilaterally. negative: Accessory muscle use, Chest wall tenderness, Decreased breath sounds, Respiratory distress, Rhonchi, Stridor, Wheezes - Cardiovascular Cardiovascular Exam: Regular rate, Normal heart sounds Peripheral Pulses: 2+: Radial (R), Radial (L) - GI/Abdominal GI/Abdominal exam: Soft. negative: Tenderness - Rectal Rectal exam: Deferred - exam: Deferred - Extremities Extremities exam: Normal inspection, Full ROM, Normal capillary refill. negative: Pedal edema, Tenderness - Back Back exam: Denies: CVA tenderness (R), CVA tenderness (L), Paraspinal tenderness, Tenderness, Vertebral tenderness - Neurological Neurological exam: Alert, Oriented X3 - Psychiatric Psychiatric exam: Normal affect, Normal mood. negative: Agitated, Anxious - Skin Skin exam: Dry, Intact, Normal color, Warm Course - Reevaluation(s) Reevaluation #1: 04/26/19 08:49 The HCT was negative for any acute injury or disease. Multiple chronic findings. DC with instructions on reasons to return to the ED Disposition Disposition: Discharge Clinical Impression: Fall Qualifiers: Encounter type: initial encounter Qualified Code(s): W19.XXXA - Unspecified fall, initial encounter Mild closed head injury Qualifiers: Encounter type: initial encounter Qualified Code(s): S09.90XA - Unspecified injury of head, initial encounter Disposition: Home, Self-Care Condition: (1) Good Instructions: Fall Prevention for Older Adults (ED) Additional Instructions: Return if headaches, dizzy, any new pain or concerns Follow up with your doctor for any other concerns Time of Disposition: 08:50 Quality - Quality Measures Quality Measures: N/A, Blunt Head Trauma (>2yr) - Thea Coma Scale Eye Response: (4) Open spontaneously Motor Response: (6) Obeys commands Verbal Response: (5) Oriented Thea Total: 15 - Blunt Head Trauma - Adult Quality Measure: Measure #415: Utilization of CT for Minor Blunt Head Trauma ICD10 Codes Entered: Yes Was CT ordered: Yes Does Patient Have Any of the Following: Taking Antiplatelet Med [place] Score: [address] for Minor Blunt Head Trauma: Patient Excluded [G9531] Additional Inclusion Criteria: Within 24hrs (AND) GCS of 15 (AND) CT ordered. [G9530] Indications For CT: Age 65 Years and Older - Blood Pressure Screening Does Patient Have Any of the Following: Active Dx of HTN Blood Pressure Classification: Hypertensive Reading Systolic Measurement: 178 Diastolic Measurement: 91 Screening for High Blood Pressure: Patient Exclusion, Hx of HTN [G9744]
--- NOTE | 2019-04-26 20:37 | CT SCAN REPORT ---
EXAM: CT SCAN HEAD WO CONTRAST HISTORY: TRIP AND FALL AT HOME. TECHNIQUE: Routine noncontrast CT of the brain. COMPARISON: CT brain without contrast dated 01/26/2018. FINDINGS: There is moderate dilatation of the subarachnoid spaces associated with mild ventriculomegaly consistent with generalized atrophy. This is unchanged. Mild periventricular and subcortical white matter lucencies are again noted scattered in each cerebral hemisphere symmetrically. These are unchanged. They are nonspecific but likely areas of chronic small vessel ischemia. No new suspicious area of abnormally increased or decreased attenuation is noted throughout the brain substance. No abnormal extra-axial fluid collection is seen. No skull fracture is identified. There is chronic mucosal thickening within the left maxillary sinus with probable retention cyst formation at its floor. A small retention cyst versus polyp is again noted within the anterior aspect of the right sphenoid sinus. Mild mucosal thickening is scattered within several left ethmoid air-cells. Post cataract surgery changes are noted bilaterally. The orbits, as visualized, are otherwise unremarkable. 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 IMPRESSION: 1. NO CT EVIDENCE OF AN ACUTE INTRACRANIAL ABNORMALITY NOR SKULL FRACTURE WITHOUT CHANGE IN APPEARANCE OF THE BRAIN SINCE 01/26/2018. 2. MODERATE GENERALIZED ATROPHY. MILD WHITE MATTER LUCENCIES SCATTERED IN EACH CEREBRAL HEMISPHERE CONSISTENT WITH CHRONIC MICROVASCULAR ISCHEMIA. 3. CHRONIC INFLAMMATORY CHANGES WITHIN MULTIPLE PARANASAL SINUSES, DISCUSSED ABOVE. JOB NUMBER: [id number] [facility]
== END 2019-04-26 09:25 | disposition home or self-care (01) ==
LOC: ER 07:48
DX: S09.90XA Unspecified injury of head, initial encounter (principal); W01.0XXA Fall on same level from slipping, tripping and stumbling without subsequent striking against object, initial encounter; Y92.121 Bathroom in nursing home as the place of occurrence of the external cause; I10 Essential (primary) hypertension; I48.91 Unspecified atrial fibrillation; E11.9 Type 2 diabetes mellitus without complications; Z79.4 Long term (current) use of insulin; Z79.01 Long term (current) use of anticoagulants
CPT/HCPCS: 70450; 99284; G0390